=== PATIENT | female | born 1995 | race Caucasian/White ===

== ENCOUNTER → 2019-09-06 | Outpatient (CLI) | payer SELFPAY ==
--- NOTE | 2019-09-06 15:20 | RADIOLOGY REPORT (SQ) ---
EXAM DESCRIPTION: U/S [id number] TRNABD 1GES W/ODOP COMPLETED DATE/TIME: 09/06/2019 3:08 pm REASON FOR STUDY: ENCTR FOR SUPERVISION OF OTHER NORMAL , 1ST TRIMESTER (Z34.81) Z34.81 EN COUNTER FOR SUPRVSN OF NORMAL , FIRST TRIM COMPARISON: None. TECHNIQUE: Transabdominal static and realtime grayscale images acquired of the pelvis. Additional se lected spectral and color Doppler images recorded. All images stored on PACs. bHCG: Not applicable. CLINICAL DATES: 14 weeks 1 day LIMITATIONS: None. FINDINGS: FETUS: Single Living intrauterine . ULTRASOUND EGA: 13 week 0 days. ULTRASOUND MAURY: 03/13/2020 EFW: Not applicable less than 20 weeks. CRL: Visualized. FHR: 162 beats per minute. SURVEY: Too early to assess. AMNIOTIC FLUID: Adequate amount. PLACENTA: Not yet developed due to early gestation. SUBCHORIONIC BLEED: No. SIZE OF BLEED: Not applicable. UTERUS: No masses. No anomalies. CERVICAL LENGTH: 3.6 cm. Closed. RIGHT ADNEXA: Normal ovary with normal vascular flow. No adnexal free fluid. No adnexal masses. LEFT ADNEXA: Normal ovary with normal vascular flow. No adnexal free fluid. No adnexal masses. FREE FLUID: None. OTHER: No other significant finding. IMPRESSION: LIVING INTRAUTERINE . EGA 13 WEEK 0 DAYS. Trimester of : First trimester - 0 to 13 weeks. TECHNICAL DOCUMENTATION: JOB ID: [id number] 2010 [employer]- All Rights Reserved rev-11/12 Reading location - IP/workstation name: [email or web address]
== END ==
LOC: RAD 13:47
PROVIDERS: ATTEND Midwife
DX: Z34.81 Encounter for supervision of other normal pregnancy, first trimester (principal)
CPT/HCPCS: 76801

== ENCOUNTER → 2019-10-31 | Outpatient (CLI) | payer SELFPAY ==
--- NOTE | 2019-10-31 14:45 | RADIOLOGY REPORT (SQ) ---
EXAM DESCRIPTION: U/S OB 14+ TRNABD 1GES W/O DOP IMAGES COMPLETED DATE/TIME: 10/31/2019 2:05 pm REASON FOR STUDY: (Z34.82)ENCOUNTER FOR SUPRVSN OF NORMAL , SECOND TRIMESTER Z34.[address] FOR SUPRVSN OF NORMAL , SECOND TRI COMPARISON: 09/06/2019. TECHNIQUE: Static and Dynamic grayscale imaging performed of gravid uterus using transabdominal appr oach. Additional selected color Doppler and spectral images recorded. All stored on PACS. LIMITATIONS: None. FINDINGS: FETUSES SEEN:1 EGA: 20 week 5 day. Calculated using BPD,FL,HC,AC documented on images. No discrepancy with clinical dates. MAURY: 03/14/2020. EFW: 368 grams LVP: 5.6 cm. PLACENTA: Anterior. Low lying. PRESENTATION: Variable. ANATOMY: HEART RATE: 140 beats per minute. FOUR CHAMBER HEART: Visualized. THREE VESSEL CORD: Yes. CORD INSERTION: Visualized. KIDNEYS AND BLADDER: Visualized. Appear normal. STOMACH: Visualized. Appears normal. SPINE: Suboptimal visualization. BRAIN AND LATERAL VENTRICLES: Visualized. Appear normal. OTHER: No other significant finding. MATERNAL ADNEXA: Maternal ovaries not visualized. CERVICAL LENGTH: 3.3 cm. Closed. OTHER: No other significant finding. IMPRESSION: LIVING INTRAUTERINE . ESTIMATED GESTATIONAL AGE 20 WEEK 5 DAY. LOW LYING PLACENTA. WILL NEED FOLLOW-UP ULTRASOUND. NO VISUALIZED ANOMALIES. Trimester of : Second trimester - 13 weeks 1 day to 27 weeks 6 days. TECHNICAL DOCUMENTATION: JOB ID: [id number] 2010 [employer]- All Rights Reserved Reading location - IP/workstation name: [email or web address]
== END ==
LOC: RAD 13:17
PROVIDERS: ATTEND Midwife
DX: Z34.82 Encounter for supervision of other normal pregnancy, second trimester (principal); Z3A.20 20 weeks gestation of pregnancy
CPT/HCPCS: 76805

== ENCOUNTER → 2019-12-21 | Outpatient (CLI) | payer SELFPAY ==
--- NOTE | 2019-12-21 14:44 | RADIOLOGY REPORT (SQ) ---
EXAM DESCRIPTION: U/S OB 14+ TA/1 GEST W/DOPPLER IMAGES COMPLETED DATE/TIME: 12/21/2019 2:22 pm REASON FOR STUDY: ENCTR FOR SUPERVISION OF OTHER NORMAL , 2ND TRIMESTER (Z34.82) Z34.82 EN COUNTER FOR SUPRVSN OF NORMAL , SECOND TRI COMPARISON: None. TECHNIQUE: Limited transabdominal grayscale ultrasound for evaluation of specific requested obstetri darrion parameters. LIMITATIONS: None. FINDINGS: CERVICAL LENGTH: 4 cm. Closed CHENCHO: 16.6 cm cm. FHR: 149 beats per minute. PRESENTATION: Transverse PLACENTA: Anterior. Slightly low lying but almost 2 cm away from the internal cervical os. Apparent placental lakes. The largest is 17 mm. ANATOMY: Not assessed OTHER: Estimated body weight 1237 +/- 183 g, 52nd percentile. Ultrasound gestational age 28 we eks 3 days with an estimated date of delivery of 03/11/2020. IMPRESSION: LIMITED OBSTETRICAL ULTRASOUND WITH MEASURED PARAMETERS DELINEATED ABOVE. Trimester of : Third trimester - 28 weeks to delivery. TECHNICAL DOCUMENTATION: JOB ID: [id number] [employer]- All Rights Reserved Reading location - IP/workstation name: [email or web address]
== END ==
LOC: RAD 13:33
PROVIDERS: ATTEND Midwife
DX: O44.43 Low lying placenta NOS or without hemorrhage, third trimester (principal); Z3A.28 28 weeks gestation of pregnancy
CPT/HCPCS: 76805; 93976

== ENCOUNTER → 2020-01-19 | Outpatient (CLI) | payer SELFPAY ==
--- NOTE | 2020-01-19 14:10 | RADIOLOGY REPORT (SQ) ---
EXAM DESCRIPTION: U/S OB 14+ TRNABD 1GES W/O DOP IMAGES COMPLETED DATE/TIME: 01/19/2020 1:55 pm REASON FOR STUDY: Z34.83 ENCOUNTER FOR SUPRVSN OF NORMAL , THIRD TRIMESTER Z34.83 ENCOUNTE R FOR SUPRVSN OF NORMAL , THIRD TRIM COMPARISON: 12/21/2019 and 10/31/2019. TECHNIQUE: Static and Dynamic grayscale imaging performed of gravid uterus using transabdominal appr oach. Additional selected color Doppler and spectral images recorded. All stored on PACS. LIMITATIONS: None. FINDINGS: FETUSES SEEN:1 EGA: 32 week 0 day. Calculated using BPD,FL,HC,AC documented on images. No discrepancy with clinical dates. MAURY: 03/15/2020. EFW: 1,824 grams PERCENTILE: 38%. CHENCHO: 27.5 cm. LVP 5.6 x 8.8 cm. PLACENTA: Anterior. The lower edge is located 3.3 cm from the internal cervical os. Incidental plac ental lakes. PRESENTATION: Transverse. ANATOMY: HEART RATE: 157 beats per minute. A full detailed anatomy scan was not performed. MATERNAL ADNEXA: Maternal ovaries not visualized. CERVICAL LENGTH: 4.0 cm. Closed. OTHER: No other significant finding. IMPRESSION: LIVING INTRAUTERINE . ESTIMATED GESTATIONAL AGE 32 WEEK 0 DAY. NO PLACENTA PREVIA. A FULL DETAILED ANATOMY SCAN WAS NOT PERFORMED. Trimester of : Third trimester - 28 weeks to delivery. TECHNICAL DOCUMENTATION: JOB ID: [id number] 2010 [employer]- All Rights Reserved Reading location - IP/workstation name: [email or web address]
== END ==
LOC: RAD 13:22
PROVIDERS: ATTEND Midwife
DX: Z34.83 Encounter for supervision of other normal pregnancy, third trimester (principal); Z3A.32 32 weeks gestation of pregnancy
CPT/HCPCS: 76805

== ENCOUNTER → 2020-02-19 | Outpatient (CLI) | payer SELFPAY ==
--- NOTE | 2020-02-19 14:50 | RADIOLOGY REPORT (SQ) ---
EXAM DESCRIPTION: U/S OB 14+ TRNABD 1GES W/O DOP IMAGES COMPLETED DATE/TIME: 02/19/2020 2:36 pm REASON FOR STUDY: Z34.83 ENCOUNTER FOR SUPRVSN OF NORMAL , THIRD TRIMESTER Z34.83 ENCOUNTE R FOR SUPRVSN OF NORMAL , THIRD TRIM COMPARISON: 01/19/2020 TECHNIQUE: Static and Dynamic grayscale imaging performed of gravid uterus using transabdominal appr oach. Additional selected color Doppler and spectral images recorded. All stored on PACS. LIMITATIONS: None. FINDINGS: FETUSES SEEN:1 EGA: 36 weeks 1 days Calculated using BPD,FL,HC,AC documented on images. MAURY: 03/15/2020 CHENCHO: 12.9 PLACENTA: Anterior. Placental lakes noted PRESENTATION: Breech. ANATOMY: HEART RATE: 143 beats per minute. A FULL DETAILED ANATOMY SCAN WAS NOT PERFORMED. OTHER: No other significant finding. MATERNAL ADNEXA: Maternal ovaries not visualized. CERVICAL LENGTH: 4.4 Closed. OTHER: No other significant finding. IMPRESSION: LIVING INTRAUTERINE . ESTIMATED GESTATIONAL AGE 36 weeks 1 day A FULL DETAILED ANATOMY SCAN WAS NOT PERFORMED. Trimester of : Third trimester - 28 weeks to delivery. TECHNICAL DOCUMENTATION: JOB ID: [id number] 2010 [employer]- All Rights Reserved Reading location - IP/workstation name: [email or web address]
== END ==
LOC: RAD 13:42
PROVIDERS: ATTEND Midwife
DX: Z34.83 Encounter for supervision of other normal pregnancy, third trimester (principal)
CPT/HCPCS: 76805

== ENCOUNTER → 2020-03-13 | Outpatient (CLI) | payer SELFPAY ==
--- NOTE | 2020-03-13 15:38 | RADIOLOGY REPORT (SQ) ---
EXAM DESCRIPTION: U/S OB LIMITED IMAGES COMPLETED DATE/TIME: 03/13/2020 3:30 pm REASON FOR STUDY: iup 40+2 CHENCHO COMPARISON: 02/19/2020 TECHNIQUE: Limited transabdominal grayscale ultrasound for evaluation of specific requested obstetri darrion parameters. LIMITATIONS: None. FINDINGS: CERVICAL LENGTH: 2.7 cm. Closed. CHENCHO: 23.3 cm. FHR: 162 beats per minute. PRESENTATION: Cephalic. PLACENTA: Multiple placental lakes. The placenta is anterior location. ANATOMY: Not assessed OTHER: Estimated gestational age is 39 weeks 5 days. IMPRESSION: LIMITED OBSTETRICAL ULTRASOUND WITH MEASURED PARAMETERS DELINEATED ABOVE. Trimester of : Third trimester - 28 weeks to delivery. TECHNICAL DOCUMENTATION: JOB ID: [id number] 2010 [employer]- All Rights Reserved Reading location - IP/workstation name: [email or web address]
--- NOTE | 2020-03-13 21:00 | Non Stress Test Report ---
Non Stress Test Datetime Report Generated by CPN: 03/13/2020 21:00 DEMOGRAPHIC EGA NST: 40.0 MONITORING Monitor Explained: Monitor Explained; Test Explained; Patient Verbalized Understanding Time on Monitor: 03/13/2020 14:41 Time off Monitor: 03/13/2020 15:06 NST Duration: 25 NST INTERVENTIONS NST Interventions: PO Hydration Physician Notified NST: Dr Cee BABY A: [id number] BABY A Movement : Present Contraction Frequency : x1 FHR Baseline : 140 Accelerations : 15X15 Decelerations : None Variability : Moderate 6-25bpm NST Review: Meets Criteria for Reactive NST NST Review and Verified By : Ashly, RN NST Results: Reactive NST REPORT Report Trigger: Send Report
== END ==
LOC: LC 14:22
PROVIDERS: ATTEND Obstetrics & Gynecology
DX: O48.0 Post-term pregnancy (principal); Z3A.40 40 weeks gestation of pregnancy; Z91.040 Latex allergy status
CPT/HCPCS: 59025; 76815

== ENCOUNTER 2020-03-17 16:45 | Inpatient (IN) | payer SELFPAY ==
[~2020-03-17 16:45] MED LIST: NORMAL SALINE IV ONE; TRANEXAMIC ACID INJ/PF 1,000 MG/10 ML SDV ONE
[2020-03-17] MEDS ORDERED: DINOPROSTONE 10 MG VAGINAL INSERT.SR PV PRN (16:52)
[2020-03-17] MEDS ORDERED: MAG HYDROX/AL HYDROX/SIMETH SUSP 30 ML UDCUP PO PRN (16:54)
[2020-03-17] MEDS ORDERED: ZOLPIDEM TARTRATE 5 MG TABLET PO PRN (16:54)
[2020-03-17] MEDS ORDERED: OXYTOCIN/0.9 % SODIUM CHLORIDE 30 UNIT/500 ML RTUINJ IV PRN (16:54)
[2020-03-17] MEDS ORDERED: DINOPROSTONE 10 MG VAGINAL INSERT.SR PV ONE (16:54)
[2020-03-17] MEDS ORDERED: ACETAMINOPHEN 325 MG TABLET PO PRN (16:54)
[2020-03-17] MEDS: RINGERS SOLUTION,LACTATED 1,000 ML IV PRN (17:16)
[2020-03-17] MEDS ORDERED: RINGERS SOLUTION,LACTATED 300 ML IV ONE (17:30)
[2020-03-17 17:31] LABS: ABSOLUTE EOSINOPHILS # (AUTO) 0.1 10^3/uL (0.0-0.6); ABSOLUTE LYMPHOCYTES (AUTO) 1.9 10^3/uL (0.5-4.7); ABSOLUTE MONOCYTES (AUTO) 0.6 10^3/uL (0.1-1.4); ABSOLUTE NEUT (AUTO) 5.6 10^3/uL (1.7-8.2); BASOPHILS % (AUTO) 0.3 % (0-2); EOSINOPHILS % (AUTO) 1.2 % (0-6); HEMATOCRIT 36.7 % (36.0-47.0); HEMOGLOBIN 12.5 g/dL (12.0-15.5); LYMPHOCYTES % (AUTO) 23.2 % (13-45); MEAN CORPUSCULAR HEMOGLOBIN 28.6 pg (27.0-33.4); MEAN CORPUSCULAR VOLUME 84 fl (80-97); MONOCYTES % (AUTO) 7.2 % (3-13); PLATELET COUNT 153 10^3/uL (150-450); RED BLOOD COUNT 4.37 10^6/uL (3.72-5.28); RED CELL DISTRIBUTION WIDTH 14.8 % (11.5-14.0); SEGMENTED NEUTROPHILS % (AUTO) 68.1 % (42-78); TOTAL CELLS COUNTED % (AUTO) 100 %; WHITE BLOOD COUNT 8.3 10^3/uL (4.0-10.5)
[2020-03-17] MEDS ORDERED: MISOPROSTOL 0.2 MG TABLET ONE (18:38)
[2020-03-17] MEDS ORDERED: OXYTOCIN 10 UNIT/ML VIAL ONE (18:38)
[2020-03-17] MEDS ORDERED: LIDOCAINE 1% INJ-PF (10 MG/ML) 30 ML SDV ONE (18:39)
[2020-03-17] MEDS ORDERED: OXYTOCIN/0.9 % SODIUM CHLORIDE 30 UNIT/500 ML RTUINJ ONE (18:39)
[2020-03-17] MEDS ORDERED: DINOPROSTONE 10 MG VAGINAL INSERT.SR ONE (19:05)
[2020-03-17 19:24] LABS: APPEARANCE,URINE CLOUDY; BILIRUBIN,URINE NEGATIVE (NEGATIVE); COLOR,URINE YELLOW; GLUCOSE, URINE NEGATIVE (NEGATIVE); KETONES,URINE NEGATIVE (NEGATIVE); LEUKOCYTE ESTERASE,URINE MODERATE (NEGATIVE); NITRITE,URINE NEGATIVE (NEGATIVE); PROTEIN,URINE 30 mg/dL (NEGATIVE); UROBILINOGEN,URINE NEGATIVE mg/dL (<2.0)
[2020-03-17 19:40] LABS: URINE AMPHETAMINES SCREEN NEGATIVE; URINE BARBITURATES SCREEN NEGATIVE; URINE BENZODIAZEPINES SCREEN NEGATIVE; URINE COCAINE SCREEN NEGATIVE; URINE MARIJUANA (THC) SCREEN NEGATIVE; URINE METHADONE SCREEN NEGATIVE; URINE PHENCYCLIDINE SCREEN NEGATIVE
--- NOTE | 2020-03-17 21:19 | Admission Physical ---
Datetime Report Generated by CPN: 03/17/2020 21:19 CURRENT ADMISSION Chief Complaint: Scheduled Induction of Labor Chief Complaint Other: Scheduled IOL. Good FM, no LOF or VB. Irregular ctx Indication for Induction: Post Dates Admit Impression : Postterm, Intrauterine Admit Plan: Admit to Unit; Initiate Labor Induction Protocol ALLERGIES Medication Allergies: No Medication Allergies: No Known Allergies (03/17/2020) Latex: Latex Allergies Food Allergies: None Environmental Allergies: None OBSTETRICAL HISTORY EDC: 03/13/2020 00:00 : 2 Para: 1 Term: 1 : 0 SAB: 0 IAB: 0 Ectopic: 0 Livin Cesareans: 0 VBACs: 0 Multiple Births: 0 Gestational Diabetes: No Rh Sensitization: No Incompetent Cervix: No ALESSIO: No Infertility: No ART Treatment: No Uterine Anomaly: No IUGR: No Hx Previous C/S: No Macrosomia: Yes Hx Loss/Stillborn: No PIH: No Hx : No Placenta Previa/Abruption: No Depression/PP Depression: No PTL/PROM: No Post Hemorrhage: No Current Procedures: Ultrasound; NST Obstetrical History Comments: G-1 3yo female 06/08/2016 G2- current, 8 lbs one month ago SEE RECORDS Alcohol: No Marijuana : No Cocaine: No Other Illicit Drugs: No Cigarettes: Never Smoker. [id number] Advised to Stop: No MEDICAL HISTORY Diabetes: No Blood Transfusion: No Pulmonary Disease (Asthma, TB): No Breast Disease: No Hypertension: No Test Desk Trouble Locator Surgery: No Heart Disease: No Hosp/Surgery: Yes Autoimmune Disorder: No Anesthetic Complications: No Kidney Disease: No Abnormal Pap Smear: No Neuro/Epilepsy: No Psychiatric Disorders: No Other Medical Diseases: No Hepatitis/Liver Disease: No Significant Family History: No Varicosities/Phlebitis: No Trauma/Violence : No Thyroid Dysfunction: No Medical History Comments: Hospitalization for child INFECTIOUS HISTORY Gonorrhea: No Genital Herpes: No Chlamydia: No Tuberculosis: No Syphilis: No Hepatitis: No HIV/AIDS Exposure: No Rash or Viral Illness: No HPV: No PHYSICAL EXAM General: Normal HEENT: Normal Neurologic: Normal Thyroid: Normal Heart: Normal Lungs: Normal Breast: Normal Back: Normal Abdomen: Normal Genitourinary Exam: Normal Extremities: Normal DTRs: Normal Pelvic Type: Adequate Vital Signs: Reviewed; Within Normal Limits VAGINAL EXAM Dilatation: 1 Effacement: 0 Station: -3 Contraction Comments: irregular FETUS A EGA: 40.4 Monitoring: External US FHR- Baseline: 155 Variability: Moderate 6-25bpm Accelerations: 15X15 Decelerations: None FHR Category: Category I Presentation: Vertex Admit Comment: at 40.4 wks EGA for IOL d/t postdates -Admit to LDR -CEFM and toco -NPO and IVFs: LR at 125 cc/hr -GBS negative -Cervidil 10mg PV now -Hx of one prior -Anticipate PLANS FOR LABOR AND DELIVERY Labor and Delivery: None Pain Management: Natural Feeding Preference: Breast Benefit of Breast Feed Discussed: Yes Circumcision: No INFORMED CONSENT Informed Consent Obtained: Vaginal Delivery; Induction of Labor; Risks, Benefits and Alternatives Discussed Signature: with User ID: Christina : with User ID: Christina
[2020-03-18] MEDS ORDERED: ACETAMINOPHEN 325 MG TABLET ONE (04:51)
[2020-03-18] MEDS ORDERED: PROMETHAZINE HCL INJ 25 MG/1 ML VIAL ONE ×2 (06:01→18:00)
[2020-03-18] MEDS ORDERED: GENTAMICIN SULFATE INJ 80 MG/2 ML VIAL ONE (06:01)
[2020-03-18] MEDS ORDERED: NALBUPHINE HCL INJ 10 MG/1 ML AMPULE ONE (06:01)
[2020-03-18] MEDS ORDERED: AMPICILLIN SOD INJ 2 GM VIAL ONE (06:01)
[2020-03-18] MEDS ORDERED: GENTAMICIN SULFATE INJ 80 MG/2 ML VIAL IV SCH (06:15)
[2020-03-18] MEDS ORDERED: AMPICILLIN SOD INJ 500 MG VIAL IV SCH (06:15)
[2020-03-18] MEDS: GENTAMICIN SULFATE 120 MG in DEXTROSE 5%-WATER 100 ML IV SCH ×3 (06:21→22:20)
[2020-03-18] MEDS ORDERED: ACETAMINOPHEN 1,000 MG/100 ML RTUPB IV ONE ×2 (08:20→15:28)
[2020-03-18] MEDS ORDERED: ACETAMINOPHEN 1,000 MG/100 ML RTUPB IV PRN ×2 (08:23→16:42)
[2020-03-18] MEDS: RINGERS SOLUTION,LACTATED 1,000 ML IV PRN ×2 (08:50→14:27)
[2020-03-18] MEDS: AMPICILLIN SODIUM 500 MG in NORMAL SALINE 25 ML IV SCH ×2 (09:48→12:36)
--- NOTE | 2020-03-18 12:01 | L&D Progress Notes ---
PROGRESS NOTES Datetime Report Generated by CPN: 03/18/2020 12:00 PROGRESS NOTE Impression: Non-reassuring Heart Rate Procedures: Scalp Electrode Plan: Continue Present Management Informed Consent Obtained: Vaginal Delivery; Induction of Labor; Risks, Benefits and Alternatives Discussed Comment: Desire used for interpretation, georgian. Discussed need for cervix check and FSE placement with patient. She declined pain management. VAGINAL EXAM Dilatation: 1 Effacement: 0 Station: -3 Contractions: irregular LAST VAGINAL EXAM-NURSING Nursing Exam Dilitation: 7.0 Nursing Exam Effacement: 50 Nursing Exam Station: -3 MEMBRANES Amniotic Fluid Color: Clear FETUS A FHR - Baseline: 150 Variability: Moderate 6-25bpm Decelerations: Variable FHR Category: Category II FHR Comments: variable decels, 1 down to 60s : 40.5 Presentation: Vertex SIGNATURE SIGNATURE: [id number];[id number];[id number] Assignment: Ibrahima oCmbs MD Signature: with User ID: [email or web address] : with User ID: Helga
[2020-03-18] MEDS ORDERED: CITRIC ACID/SODIUM CITRATE ORAL SOLN 15 ML UDCUP ONE (15:24)
[2020-03-18] MEDS ORDERED: OXYTOCIN 10 UNIT/ML VIAL ONE (15:26)
[2020-03-18] MEDS ORDERED: KETOROLAC TROMETHAMINE INJ/PF 30 MG/1 ML SDV ONE (15:27)
[2020-03-18] MEDS ORDERED: PHENYLEPHRINE HCL INJ/PF 10 MG/1 ML SDV ONE (15:27)
[2020-03-18] MEDS ORDERED: FENTANYL CITRATE INJ/PF 100 MCG/2 ML AMPUL ONE (15:27)
[2020-03-18] MEDS ORDERED: MIDAZOLAM 2 MG/2 ML INJ ONE (15:27)
[2020-03-18] MEDS ORDERED: ONDANSETRON HCL INJ/PF 4 MG/2 ML SDV ONE (15:28)
[2020-03-18] MEDS ORDERED: EPHEDRINE SULFATE INJ 50 MG/1 ML AMPULE ONE (15:28)
[2020-03-18] MEDS ORDERED: OXYTOCIN/0.9 % SODIUM CHLORIDE 0 UNIT/0 ML RTUINJ ONE (15:28)
[2020-03-18] MEDS ORDERED: ACETAMINOPHEN 325 MG TABLET PO PRN (16:41)
[2020-03-18] MEDS ORDERED: SIMETHICONE 80 MG TAB.CHEW PO PRN (16:41)
[2020-03-18] MEDS ORDERED: MEASLES,MUMPS&RUBELLA VACC/PF 0.5 ML VIAL SUBCUT PRN (16:41)
[2020-03-18] MEDS ORDERED: RINGERS SOLUTION,LACTATED 1,000 ML IV PRN (16:41)
[2020-03-18] MEDS ORDERED: DIPH/PERTUSS(ACELL)/TETANUS VAC/PF 0.5 ML SYR (>=10YO) IM PRN (16:41)
[2020-03-18] MEDS ORDERED: OXYTOCIN/0.9 % SODIUM CHLORIDE 30 UNIT/500 ML RTUINJ IV PRN (16:41)
[2020-03-18] MEDS ORDERED: PROMETHAZINE HCL INJ 25 MG/1 ML VIAL IV PRN (16:41)
[2020-03-18] MEDS ORDERED: MORPHINE SULFATE 10 MG/ML INJ IM PRN (16:42)
--- NOTE | 2020-03-18 16:45 | Operative Report ---
Operative Report DATE OF SURGERY: 03/18/20 PREOPERATIVE DIAGNOSIS: IUP at term spontaneous rupture membranes and f ailure to descend POSTOPERATIVE DIAGNOSIS: Same OPERATION: Primary low transverse section liver viable SURGEON: EFRAIN TRINIDAD ANESTHESIA: Spinal TISSUE REMOVED OR ALTERED: Placenta ESTIMATED BLOOD LOSS: Approximately 1200 cc PROCEDURE: The patient was taken to the operating room where spinal anesthesia was obtained and found to be adequate. She was then prepped and draped in the normal sterile fashion and placed in the dorsal supine position with a leftward tilt. A Pfannenstiel skin incision was then made and carried through to the underlying layers of the fascia with the scalpel. The fascia was incised in the midline and the incision extended laterally with the Orellana scissors. The superior aspect of the fascial incision was then grasped with Gian clamps elevated and the underlying rectus muscles dissected off bluntly. Attention was then turned to the inferior aspect of the fascial incision which in a similar fashion was grasped, tented up with Gordy clamps, and the rectus muscles disse cted off bluntly. The rectus muscles were then in the midline and the peritoneum at the amount identified and entered bluntly. The peritoneal incision was then extended superiorly and inferiorly with good visualization of the bladder. [The bladder blade was inserted and the vesicouterine peritoneum identified grasped with Colombian pickups and entered sharply with the Metzenbaum scissors. His incision was then extended laterally with the Metzenbaum scissors and a bladder flap created digitally. The bladder blade was then reinserted and the lower uterine segment incised in a transverse fashion with the scalpel. The uterine incision was then extended bluntly. The bladder blade was removed and the 's head was delivered from cephalic presentation atraumatically. The nose and mouth were suctioned and the cord doubly clamped and cut. And the was handed off to waiting pediatricians. The placenta was then delivered manully and the uterus exteriorized and cleared of all clots and debris. The uterine incision was then repaired with 1-0 Vicryl in a running locked fashion. A second layer of the same suture was used to obtain hemostasis via imbrication of the initial layer. The uterus was returned to the patient's abdomen. The gutters were cleared of all clots and debris. All operative sites were noted to be hemostatic. The fascia was reapproximated with 0 Vicryl in a running fashion from each lateral edge to the midline. The patient tolerated the procedure well. Sponge lap needle and instrument counts are correct -2. 2 g of Ancef were given prior to skin incision. The patient was taken to the recovery area awake and in stable condition.
[2020-03-18] MEDS ORDERED: METHYLERGONOVINE MALEATE INJ/PF 0.2 MG/1 ML AMPULE ONE (17:14)
[2020-03-18] MEDS ORDERED: MISOPROSTOL 0.2 MG TABLET ONE (17:14)
[2020-03-18] MEDS ORDERED: NORMAL SALINE 250 ML IV PRN ×2 (17:36)
[2020-03-18] MEDS ORDERED: CARBOPROST TROMETHAMINE INJ 250 MCG/1 ML AMPULE ONE (17:49)
[2020-03-18] MEDS ORDERED: LOPERAMIDE HCL 2 MG CAPSULE ONE (17:49)
[2020-03-18] MEDS ORDERED: IBUPROFEN 800 MG TABLET PO SCH (18:00)
[2020-03-18 18:10] LABS: HEMATOCRIT 33.3 % (36.0-47.0); MEAN CORPUSCULAR HEMOGLOBIN 28.4 pg (27.0-33.4); MEAN CORPUSCULAR VOLUME 86 fl (80-97); PLATELET COUNT 162 10^3/uL (150-450); RED BLOOD COUNT 3.87 10^6/uL (3.72-5.28); RED CELL DISTRIBUTION WIDTH 14.6 % (11.5-14.0); WHITE BLOOD COUNT 12.6 10^3/uL (4.0-10.5)
[2020-03-18 20:51] LABS: ABSOLUTE LYMPHOCYTES (AUTO) 1.1 10^3/uL (0.5-4.7); ABSOLUTE MONOCYTES (AUTO) 0.7 10^3/uL (0.1-1.4); ABSOLUTE NEUT (AUTO) 8.3 10^3/uL (1.7-8.2); BASOPHILS % (AUTO) 0.3 % (0-2); EOSINOPHILS % (AUTO) 0.1 % (0-6); HEMATOCRIT 27.9 % (36.0-47.0); LYMPHOCYTES % (AUTO) 11.3 % (13-45); MEAN CORPUSCULAR HEMOGLOBIN 28.8 pg (27.0-33.4); MEAN CORPUSCULAR HGB CONC 34.2 g/dL (32.0-36.0); MEAN CORPUSCULAR VOLUME 84 fl (80-97); PLATELET COUNT 150 10^3/uL (150-450); RED BLOOD COUNT 3.32 10^6/uL (3.72-5.28); RED CELL DISTRIBUTION WIDTH 15.1 % (11.5-14.0); SEGMENTED NEUTROPHILS % (AUTO) 81.3 % (42-78); TOTAL CELLS COUNTED % (AUTO) 100 %; WHITE BLOOD COUNT 10.2 10^3/uL (4.0-10.5)
[2020-03-18 20:52] LABS: HEMOGLOBIN 9.6 g/dL (12.0-15.5)
[2020-03-18] MEDS ORDERED: KETOROLAC TROMETHAMINE INJ/PF 30 MG/1 ML SDV IV SCH (22:00)
[2020-03-19] MEDS: KETOROLAC TROMETHAMINE INJ/PF 30 MG/1 ML SDV IV SCH ×2 (00:58→08:09)
[2020-03-19] MEDS: AMPICILLIN SODIUM 500 MG in NORMAL SALINE 25 ML IV SCH ×5 (00:58→17:26)
[2020-03-19] MEDS: DOCUSATE SODIUM 100 MG CAPSULE PO SCH ×3 (02:23→17:26)
[2020-03-19] MEDS: OXYCODONE-ACETAMINOPHEN 5-325 MG TABLET PO PRN ×3 (03:58→16:00)
[2020-03-19] MEDS: GENTAMICIN SULFATE 120 MG in DEXTROSE 5%-WATER 100 ML IV SCH ×2 (06:08→13:14)
[2020-03-19 07:47] LABS: HEMATOCRIT 24.2 % (36.0-47.0); HEMOGLOBIN 8.2 g/dL (12.0-15.5); MEAN CORPUSCULAR HGB CONC 33.9 g/dL (32.0-36.0); MEAN CORPUSCULAR VOLUME 86 fl (80-97); PLATELET COUNT 161 10^3/uL (150-450); RED BLOOD COUNT 2.83 10^6/uL (3.72-5.28); RED CELL DISTRIBUTION WIDTH 14.9 % (11.5-14.0); WHITE BLOOD COUNT 10.5 10^3/uL (4.0-10.5)
[2020-03-19] MEDS: PRENATAL VITAMIN W DHA CAPSULE PO SCH (09:10)
--- NOTE | 2020-03-19 12:10 | PDOC PROGRESS REPORT ---
Subjective-OB Progress Note for:: 03/19/20 Subjective: reports bleeding slowing, pain controlled with current meds. denies needs. martii used for translation Physical Exam (OB) Vital Signs: Temp Pulse Resp BP Pulse Ox 98.0 F 89 16 110/57 L 98 03/19/20 11:32 03/19/20 11:32 03/19/20 11:32 03/19/20 11:32 03/19/20 11:32 Intake & Output 03/18/20 03/19/20 03/20/20 06:59 06:59 06:59 Intake Total 3152 1425 Output Total 100 700 Balance 3052 725 Weight 80.8 kg - Dressing Removed: Yes Incision: Open - Maternal Morbidity 59. Maternal Morbidity (serious complications experinced by the mother associated with labor and delivery: None of the above - Abdomen Description: Tender, Soft Hernia Present: No Fundal Description: Firm, Midline Fundal Height: u/u - u/2 - Abdominal Distension: No distension - Extremities Lower extremities: Brenda's sign - neg Calf: Normal, Nontender Objective-Diagnostic Laboratory: 03/19/20 07:00 03/17/20 03/18/20 03/18/20 17:10 17:55 20:29 WBC 12.6 H 10.2 RBC 3.87 3.32 L Hgb 11.0 L 9.6 L Hct 33.3 L 27.9 L MCV 86 84 MCH 28.4 28.8 MCHC 33.0 34.2 RDW 14.6 H 15.1 H Plt Count 162 150 Seg Neutrophils % 81.3 H Blood Type O POSITIVE Antibody Screen NEGATIVE 03/19/20 07:00 WBC 10.5 RBC 2.83 L Hgb 8.2 L Hct 24.2 L MCV 86 MCH 29.0 MCHC 33.9 RDW 14.9 H Plt Count 161 Seg Neutrophils % Blood Type Antibody Screen Assessment and Plan(PN) - Assessment and Plan (1) Status post primary low transverse section Is this a current diagnosis for this admission?: Yes (2) Encounter for induction of labor Is this a current diagnosis for this admission?: Yes - Time Spent with Patient Time with patient: Less than 15 minutes - Disposition Anticipated Discharge Disposition: Home, Self Care Anticipated Discharge Timeframe: within 48 hours
[2020-03-19] MEDS: IBUPROFEN 800 MG TABLET PO SCH ×2 (15:57→20:28)
[2020-03-20] MEDS: IBUPROFEN 800 MG TABLET PO SCH ×3 (03:16→16:33)
[2020-03-20] MEDS: OXYCODONE-ACETAMINOPHEN 5-325 MG TABLET PO PRN (07:43)
[2020-03-20] MEDS: DOCUSATE SODIUM 100 MG CAPSULE PO SCH (10:43)
[2020-03-20] MEDS: PRENATAL VITAMIN W DHA CAPSULE PO SCH (10:43)
[2020-03-20] MEDS ORDERED: IRON SUCROSE COMPLEX INJ/PF 100 MG/5 ML SDV IV ONE ×2 (12:55→17:30)
--- NOTE | 2020-03-20 13:06 | PDOC DISCHARGE SUMMARY ---
Impression - Admit/DC Date/PCP Admission Date/Primary Care Provider: 03/17/20 16:45 NOLAN LEA CNM Discharge Date: 03/20/20 - Discharge Diagnosis (1) Status post primary low transverse section Is this a current diagnosis for this admission?: Yes (2) Encounter for induction of labor Is this a current diagnosis for this admission?: Yes (3) Acute blood loss anemia Is this a current diagnosis for this admission?: Yes - Assessment Summary: 24yo s/p primary ppd2-stable and ready for discharge, understands warning s/s and reasons to rtc/[facility]. Has scheduled f/u visit for incision check. - Additional Information Resuscitation Status: Full Code Discharge Diet: As Tolerated, Regular Discharge Activity: Activity As Tolerated, Balance Activity w/Rest, No Driving, No Lifting Over 10 Pounds, Pelvic Rest, No tub bath Referrals: NOLAN LEA CNM [Primary Care Provider] - Prescriptions: Oxycodone HCl/Acetaminophen [Percocet 5-325 mg Tablet] 1 tab PO Q4HP PRN #20 tablet PRN Reason: For Pain Scale 3-5 Ibuprofen [Motrin 800 mg Tablet] 800 mg PO Q8HP PRN #30 tablet PRN Reason: For Pain Scale 1-3 Docusate Sodium [Colace 100 mg Capsule] 100 mg PO BID #60 capsule Ferrous Sulfate [Feosol 325 mg Tablet] 325 mg PO DAILY #30 tab Home Medications: Vit/Dha [ Multi + Dha Capsule] 1 cap PO DAILY 03/13/20 Docusate Sodium [Colace 100 mg Capsule] 100 mg PO BID #60 capsule 03/20/20 Ferrous Sulfate [Feosol 325 mg Tablet] 325 mg PO DAILY #30 tab 03/20/20 Ibuprofen [Motrin 800 mg Tablet] 800 mg PO Q8HP PRN #30 tablet 03/20/20 Oxycodone HCl/Acetaminophen [Percocet 5-325 mg Tablet] 1 tab PO Q4HP PRN #20 tablet 03/20/20 Hospital Course 59. Maternal Morbidity (serious complications experinced by the mother associated with labor and delivery: None of the above Results Laboratory Results: WBC 10.5 10^3/uL (4.0-10.5) 03/19/20 07:00 RBC 2.83 10^6/uL (3.72-5.28) L 03/19/20 07:00 Hgb 8.2 g/dL (12.0-15.5) L 03/19/20 07:00 Hct 24.2 % (36.0-47.0) L 03/19/20 07:00 MCV 86 fl (80-97) 03/19/20 07:00 MCH 29.0 pg (27.0-33.4) 03/19/20 07:00 MCHC 33.9 g/dL (32.0-36.0) 03/19/20 07:00 RDW 14.9 % (11.5-14.0) H 03/19/20 07:00 Plt Count 161 10^3/uL (150-450) 03/19/20 07:00 Lymph % (Auto) 11.3 % (13-45) L 03/18/20 20: Wright % (Auto) 7.0 % (3-13) 03/18/20 20: Eos % (Auto) 0.1 % (0-6) 03/18/20: Baso % (Auto) 0.3 % (0-2) 03/18/20 20: Absolute Neuts (auto) 8.3 10^3/uL (1.7-8.2) H 03/18/20 20: Absolute Lymphs (auto) 1.1 10^3/uL (0.5-4.7) 03/18/20 20: Absolute Monos (auto) 0.7 10^3/uL (0.1-1.4) 03/18/20 20: Absolute Eos (auto) 0.0 10^3/uL (0.0-0.6) 03/18/20: Absolute Basos (auto) 0.0 10^3/uL (0.0-0.2) 03/18/20: Seg Neutrophils % 81.3 % (42-78) H 03/18/20 20: Urine Color YELLOW 03/17/20 17:00 Urine Appearance CLOUDY 03/17/20 17:00 Urine pH 5.0 (5.0-9.0) 03/17/20 17:00 Ur Specific [place] 1.010 03/17/20 17:00 Urine Protein 30 mg/dL (NEGATIVE) H 03/17/20 17:00 Urine Glucose (UA) NEGATIVE mg/dL (NEGATIVE) 03/17/20 17:00 Urine Ketones NEGATIVE mg/dL (NEGATIVE) 03/17/20 17:00 Urine Blood NEGATIVE (NEGATIVE) 03/17/20 17:00 Urine Nitrite NEGATIVE (NEGATIVE) 03/17/20 17:00 Urine Bilirubin NEGATIVE (NEGATIVE) 03/17/20 17:00 Urine Urobilinogen NEGATIVE mg/dL (<2.0) 03/17/20 17:00 Ur Leukocyte Esterase MODERATE (NEGATIVE) H 03/17/20 17:00 Urine Ascorbic Acid NEGATIVE (NEGATIVE) 03/17/20 17:00 Urine Opiates Screen NEGATIVE 03/17/20 17:00 Urine Methadone Screen NEGATIVE 03/17/20 17:00 Ur Barbiturates Screen NEGATIVE 03/17/20 17:00 Ur Phencyclidine Scrn NEGATIVE 03/17/20 17:00 Ur Amphetamines Screen NEGATIVE 03/17/20 17:00 U Benzodiazepines Scrn NEGATIVE 03/17/20 17:00 Urine Cocaine Screen NEGATIVE 03/17/20 17:00 U Marijuana (THC) Screen NEGATIVE 03/17/20 17:00 RPR NONREACTIVE (NONREACTIVE) 03/17/20 17:10 Blood Type O POSITIVE 03/17/20 17:10 Blood Type Confirm O POSITIVE 03/18/20 17:55 Antibody Screen NEGATIVE 03/17/20 17:10 Crossmatch See Detail 03/17/20 17:10
[2020-03-20 13:27] VITALS: BP 118/74
== END 2020-03-20 18:20 | disposition home or self-care (01) | DRG 788 ==
LOC: LR 16:45 → 2S 03-18 20:10
PROVIDERS: ADMIT Obstetrics & Gynecology Gynecology; ATTEND Obstetrics & Gynecology Gynecology
PROC: 10D00Z1 Extraction of Products of Conception, Low, Open Approach (ICD-10-PCS; principal; 2020-03-18)
DX: O48.0 Post-term pregnancy (principal); Z3A.40 40 weeks gestation of pregnancy; Z37.0 Single live birth; O32.4XX0 Maternal care for high head at term, not applicable or unspecified
CPT/HCPCS: 1961; 36415; 80307; 81005; 85025; 85027; 86592; 86850; 86900; 86901; 86920; 94760; 94799; 99140; J0131; J0290; J1580; J1756; J1885; J2210; J2250; J2300; J2370; J2405; J2550; J2590; J3010; J3490; J7050; J7060; J7120

== ENCOUNTER 2020-04-01 10:52 | Inpatient (IN) | payer SELFPAY ==
[2020-04-01] MEDS ORDERED: ACETAMINOPHEN 325 MG TABLET PO ONE (11:11)
[2020-04-01] MEDS ORDERED: PIPERACILLIN/TAZOBACTAM 4.5 GM VIAL IV ONE (11:16)
[2020-04-01] MEDS ORDERED: CLINDAMYCIN 300 MG/D5W RTU 300 MG/50 ML RTUPB IV ONE (11:19)
--- NOTE | 2020-04-01 11:22 | ER Document Report ---
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 She states she had a on 18 March. She has had a fever every day since then. She states she has been taking the medicines that they gave her at the hospital but has not started the antibiotic the doctor ordered because they have not filled the prescription. She states she has had a fever every day from 9 AM to 3 PM. She states yesterday her temperature was 104. She states the doctor had told her to take ibuprofen every 8 hours and she has been taking 800 mg. She did take it this morning. She has been started on the septic protocol at this time. A consult Dr. Means antibiotic selection. I have greeted and performed a rapid initial assessment of this patient. A comprehensive ED assessment and evaluation of the patient, analysis of test results and completion of medical decision making process will be conducted by an additional ED providers. TRAVEL OUTSIDE OF THE [place] IN LAST 30 DAYS: No - Related Data Allergies/Adverse Reactions: No Known Allergies Allergy (Verified 03/17/20 17:18) Physical Exam - Vital signs Vitals: Temp Pulse Resp BP Pulse Ox 102.9 F H 128 H 20 107/72 97 04/01/20 10:59 04/01/20 10:59 04/01/20 10:59 04/01/20 10:59 04/01/20 10:59 Course - Vital Signs Vital signs: Temp Pulse Resp BP Pulse Ox 102.9 F H 128 H 20 107/72 97 04/01/20 10:59 04/01/20 10:59 04/01/20 10:59 04/01/20 10:59 04/01/20 10:59 Doctor's Discharge - Discharge Referrals: NOLAN LEA CNM [Primary Care Provider] - Follow up as needed
[2020-04-01] MEDS ORDERED: NORMAL SALINE 1000 ML 1,000 ML IV ONE ×3 (11:35→14:20)
[2020-04-01 12:01] LABS: ABSOLUTE LYMPHOCYTES (AUTO) 1.3 10^3/uL (0.5-4.7); ABSOLUTE MONOCYTES (AUTO) 0.7 10^3/uL (0.1-1.4); ABSOLUTE NEUT (AUTO) 10.2 10^3/uL (1.7-8.2); BASOPHILS % (AUTO) 0.4 % (0-2); EOSINOPHILS % (AUTO) 0.1 % (0-6); HEMATOCRIT 24.6 % (36.0-47.0); HEMOGLOBIN 8.1 g/dL (12.0-15.5); LYMPHOCYTES % (AUTO) 10.4 % (13-45); MEAN CORPUSCULAR HEMOGLOBIN 27.1 pg (27.0-33.4); MEAN CORPUSCULAR HGB CONC 32.8 g/dL (32.0-36.0); MEAN CORPUSCULAR VOLUME 83 fl (80-97); MONOCYTES % (AUTO) 5.3 % (3-13); PLATELET COUNT 283 10^3/uL (150-450); RED BLOOD COUNT 2.98 10^6/uL (3.72-5.28); RED CELL DISTRIBUTION WIDTH 15.4 % (11.5-14.0); SEGMENTED NEUTROPHILS % (AUTO) 83.8 % (42-78); TOTAL CELLS COUNTED % (AUTO) 100 %; WHITE BLOOD COUNT 12.2 10^3/uL (4.0-10.5)
[2020-04-01 12:11] LABS: INTERNATIONAL RATION (INR) 1.21; PROTHROMBIN TIME 15.5 SEC (11.4-15.4)
[2020-04-01 12:23] LABS: ALBUMIN 3.5 g/dL (3.5-5.0); ALKALINE PHOSPHATASE 144 U/L (38-126); ANION GAP 15 (5-19); ASPARTATE AMINO TRANSFERASE 34 U/L (14-36); BILIRUBIN,DIRECT 0.3 mg/dL (0.0-0.4); BILIRUBIN,TOTAL 0.5 mg/dL (0.2-1.3); BLOOD UREA NITROGEN 13 mg/dL (7-20); CALCIUM 8.8 mg/dL (8.4-10.2); CARBON DIOXIDE 22 mmol/L (22-30); CHLORIDE 99 mmol/L (98-107); GLUCOSE 120 mg/dL (75-110); POTASSIUM 4.3 mmol/L (3.6-5.0); TOTAL PROTEIN 6.5 g/dL (6.3-8.2)
--- NOTE | 2020-04-01 12:27 | RADIOLOGY REPORT (SQ) ---
EXAM DESCRIPTION: CHEST 2 VIEWS IMAGES COMPLETED DATE/TIME: 04/01/2020 12:12 pm REASON FOR STUDY: sepsis COMPARISON: None. EXAM PARAMETERS: NUMBER OF VIEWS: two views TECHNIQUE: Digital Frontal and Lateral radiographic views of the chest acquired. RADIATION DOSE: NA LIMITATIONS: none FINDINGS: LUNGS AND PLEURA: No opacities, masses or pneumothorax. No pleural effusion. MEDIASTINUM AND HILAR STRUCTURES: No masses or contour abnormalities. HEART AND VASCULAR STRUCTURES: Heart normal size. No evidence for failure. BONES: No acute findings. HARDWARE: None in the chest. OTHER: No other significant finding. IMPRESSION: NO ACUTE RADIOGRAPHIC FINDING IN THE CHEST. TECHNICAL DOCUMENTATION: JOB ID: [id number] 2010 [employer]- All Rights Reserved Reading location - IP/workstation name: [email or web address]
--- NOTE | 2020-04-01 12:47 | EKG REPORT ---
SEVERITY:- OTHERWISE NORMAL ECG - SINUS TACHYCARDIA INFERIOR Q WAVES, NORMAL VARIATION : Confirmed by: Edda Davey MD 01-Apr-2020 12:46:07
--- NOTE | 2020-04-01 13:37 | RADIOLOGY REPORT (SQ) ---
EXAM DESCRIPTION: U/S NON-OB PELVIS TV W/O DOP IMAGES COMPLETED DATE/TIME: 04/01/2020 1:22 pm REASON FOR STUDY: post fever/pain COMPARISON: None. TECHNIQUE: Dynamic and static grayscale images acquired of the pelvis via transvaginal approach and recorded on PACS. Additional selected color Doppler and spectral images recorded. LIMITATIONS: None. FINDINGS: UTERUS: Contour normal. No mass. ENDOMETRIAL STRIPE: Thickened with increased vascularity and complex configuration. CERVIX: 3.3 cm. No nabothian cysts. RIGHT OVARY AND DOPPLER: Normal size. No worrisome masses. Normal arterial vascular flow without evid ence for torsion. LEFT OVARY AND DOPPLER: Ovary not seen. FREE FLUID: None noted. OTHER: No other significant finding. MEASUREMENTS: UTERUS: 13 x 10 x 8 cm ENDOMETRIAL STRIPE: 5 cm RIGHT OVARY: 4 x 2 x 2 cm LEFT OVARY: Not seen. IMPRESSION: The appearance of the endometrium is concerning for retained products of conception. Ca nnot exclude infection. TECHNICAL DOCUMENTATION: JOB ID: [id number] 2010 [employer]- All Rights Reserved Rev-11/12 Reading location - IP/workstation name: [email or web address]
--- NOTE | 2020-04-01 14:14 | ER Document Report ---
ED General - General Chief Complaint: Post Problem Stated Complaint: POST PROBLEM Time Seen by Provider: 04/01/20 11:09 Primary Care Provider: NOLAN LEA CNM [NO LOCAL MD] - Follow up as needed Mode of Arrival: Wheelchair Information source: Patient, Relative - TRAVEL OUTSIDE OF THE [place] IN LAST 30 DAYS: No - HPI Notes: Patient presents with fever and abdominal pain. Patient states on March 182019 she had a performed at this hospital. She states she has had a fever every day since that time. She states she has followed up in the clinic and was given an antibiotic. According to patient has been taking the antibiotic but continues to have fevers. Her abdominal pain also continues to increase. It is in bilateral lower quadrants and worse with movement better with rest. It is severe constant and radiates across the abdomen. Is located mainly along the lines of the incision. She has not noticed any discharge from the incision. She has had no noticeable pus but is still having brownish discharge from her vaginal area. She has no breast pain. No vomiting or diarrhea. - Related Data Allergies/Adverse Reactions: No Known Allergies Allergy (Verified 03/17/20 17:18) Past Medical History - General Information source: Patient - Social History Smoking Status: Never Smoker Frequency of alcohol use: None Drug Abuse: None Family History: Reviewed & Not Pertinent Review of Systems - Review of Systems Constitutional: Chills, Fever, Malaise Cardiovascular: denies: Chest pain, Palpitations Respiratory: denies: Cough, Short of breath -: Yes All other systems reviewed and negative Physical Exam - Vital signs Vitals: Temp Pulse Resp BP Pulse Ox 102.9 F H 128 H 20 107/72 97 04/01/20 10:59 04/01/20 10:59 04/01/20 10:59 04/01/20 10:59 04/01/20 10:59 Interpretation: Tachycardic, Febrile - General General appearance: Alert In distress: None - HEENT Head: Normocephalic, Atraumatic Eyes: Normal Pupils: PERRL - Respiratory Respiratory status: No respiratory distress Chest status: Nontender Breath sounds: Normal Chest palpation: Normal - Cardiovascular Rhythm: Tachycardia Heart sounds: Normal auscultation Murmur: No - Abdominal Inspection: Other - Patient has a lower abdominal scar consistent with a C- section incision. The incision itself does not appear acutely infected and I do not appreciate any infectious discharge from the wound. The area all along the incision however is tender to palpation Distension: No distension Bowel sounds: Normal Tenderness: Nontender Organomegaly: No organomegaly - Back Back: Normal, Nontender - Extremities General upper extremity: Normal inspection, Nontender, Normal color, Normal ROM, Normal temperature General lower extremity: Normal inspection, Nontender, Normal color, Normal ROM, Normal temperature, Normal weight bearing. No: Brenda's sign - Neurological Neuro grossly intact: Yes Cognition: Normal Orientation: AAOx4 [place] Coma Scale Eye Opening: Spontaneous [place] Coma Scale Verbal: Oriented [place] Coma Scale Motor: Obeys Commands [place] Coma Scale Total: 15 Speech: Normal Motor strength normal: LUE, RUE, LLE, RLE Sensory: Normal - Psychological Associated symptoms: Normal affect, Normal mood - Skin Skin Temperature: Warm Skin Moisture: Dry Skin Color: Normal Course - Re-evaluation Re-evalutation: 04/01/20 14:13 Patient presents with fever and lower abdominal pain after . Ultrasound shows questionable retained products. Patient has had some tachycardia and fever here however her blood pressures been stable. She has been treated with IV fluids and antibiotics. I have consulted [facility] who is seen the patient in the emergency department. - Vital Signs Vital signs: Temp Pulse Resp BP Pulse Ox 99.5 F 128 H 18 107/75 98 04/01/20 13:27 04/01/20 10:59 04/01/20 12:13 04/01/20 12:13 04/01/20 12:13 - Laboratory Result Diagrams: 04/01/20 11:37 04/01/20 11:37 Laboratory results interpreted by me: 04/01/20 04/01/20 04/01/20 11:37 11:37 11:37 WBC 12.2 H RBC 2.98 L Hgb 8.1 L Hct 24.6 L RDW 15.4 H Lymph % (Auto) 10.4 L Absolute Neuts (auto) 10.2 H Seg Neutrophils % 83.8 H PT 15.5 H Sodium 135.7 L Glucose 120 H Lactic Acid Alkaline Phosphatase 144 H 04/01/20 11:37 WBC RBC Hgb Hct RDW Lymph % (Auto) Absolute Neuts (auto) Seg Neutrophils % PT Sodium Glucose Lactic Acid 2.3 H Alkaline Phosphatase - Diagnostic Test Radiology reviewed: Image reviewed, Reports reviewed Critical Care Note - Critical Care Note Total time excluding time spent on procedures (mins): 55 Comments: Approximate 55 minutes of critical care time were spent on this patient with septic endometritis. This time is been doing multiple reassessments. It was spent talking to multiple consultants. It was spent reviewing imaging and laboratory values. I spent reviewing old records. Discharge - Discharge Clinical Impression: Endometritis following delivery Sepsis Qualifiers: Sepsis type: sepsis due to unspecified organism Sepsis acute organ dysfunction status: without acute organ dysfunction Qualified Code(s): A41.9 - Sepsis, unspecified organism Condition: Serious Disposition: ADMITTED INPATIENT Admitting Provider: [facility] Unit Admitted: Medical Floor Referrals: NOLAN LEA CNM [NO LOCAL MD] - Follow up as needed
--- NOTE | 2020-04-01 14:31 | PDOC H&P ---
History of Present Illness Patient complains of: fever since c/section on 03/18/20 History of Present Illness: BRIAN ALBERT is a 24 year old female here with c/o fever, chills and abdominal pain since her c/section on 03/18/20. Patient indicates that she was seen at [facility] and given a prescription for antibiotics, however she never had the script filled. She presents today and findings significant for t emp of 102.9 and mild tachycardia. Past Surgical History Past Surgical History: Reports: Section - x 2 Social History Information Source: Patient, Relative Lives with: Family Smoking Status: Never Smoker Electronic Cigarette use?: No Frequency of Alcohol Use: None Hx Recreational Drug Use: No Drugs: None Hx Prescription Drug Abuse: No Family History Family History: Reviewed & Not Pertinent Parental Family History Reviewed: Yes Children Family History Reviewed: Yes Sibling(s) Family History Reviewed.: Yes Medication/Allergy Home Medications: Vit/Dha [ Multi + Dha Capsule] 1 cap PO DAILY 03/13/20 Docusate Sodium [Colace 100 mg Capsule] 100 mg PO BID #60 capsule 03/20/20 Ferrous Sulfate [Feosol 325 mg Tablet] 325 mg PO DAILY #30 tab 03/20/20 Ibuprofen [Motrin 800 mg Tablet] 800 mg PO Q8HP PRN #30 tablet 03/20/20 Oxycodone HCl/Acetaminophen [Percocet 5-325 mg Tablet] 1 tab PO Q4HP PRN #20 tablet 03/20/20 Allergies/Adverse Reactions: No Known Allergies Allergy (Verified 03/17/20 17:18) Physical Exam - Physical Exam Vital Signs: Temp Pulse Resp BP Pulse Ox 98.4 F 128 H 21 H 105/69 99 04/01/20 14:22 04/01/20 10:59 04/01/20 14:01 04/01/20 14:01 04/01/20 14:01 Intake & Output 03/31/20 04/01/20 04/02/20 06:59 06:59 06:59 Intake Total 1050 Balance 1050 Weight 69 kg General appearance: PRESENT: no acute distress, well-nourished - diaphoretic Head exam: PRESENT: normocephalic Eye exam: PRESENT: conjunctiva pale GI/Abdominal exam: PRESENT: soft, tenderness - at uterine fundus, fundus is at umbilicus Musculoskeletal exam: PRESENT: ambulatory, full ROM Skin exam: PRESENT: warm Result Laboratory Results: 04/01/20 11:37 04/01/20 11:37 04/01/20 04/01/20 04/01/20 11:37 11:37 11:37 WBC 12.2 H RBC 2.98 L Hgb 8.1 L Hct 24.6 L MCV 83 MCH 27.1 MCHC 32.8 RDW 15.4 H Plt Count 283 Seg Neutrophils % 83.8 H Sodium 135.7 L Potassium 4.3 Chloride 99 Carbon Dioxide 22 Anion Gap 15 BUN 13 Creatinine 0.52 Est GFR ( Amer) > 60 Glucose 120 H Lactic Acid 2.3 H Calcium 8.8 Total Bilirubin 0.5 AST 34 Alkaline Phosphatase 144 H Total Protein 6.5 Albumin 3.5 Impressions: Chest X-Ray 04/01/20 11:11 IMPRESSION: NO ACUTE RADIOGRAPHIC FINDING IN THE CHEST. Transvaginal US 04/01/20 11:50 IMPRESSION: The appearance of the endometrium is concerning for retained products of conception. Cannot exclude infection. Assessment & Plan - Diagnosis (1) Endometritis following delivery Is this a current diagnosis for this admission?: Yes (2) Sepsis Qualifiers: Sepsis type: sepsis due to unspecified organism Sepsis acute organ dysf unction status: without acute organ dysfunction Qualified Code(s): A41.9 - Sepsis, unspecified organism Is this a current diagnosis for this admission?: Yes (3) Status post primary low transverse section Is this a current diagnosis for this admission?: Yes - Time Time Spent: 30 to 50 Minutes Critical Time spent with patient: Less than 15 minutes Anticipated Discharge Disposition: Home, Self Care Anticipated Discharge Timeframe: within 48 hours - Inpatient Certification Based on my medical assessment, after consideration of the patient's comorbidities, presenting symptoms, or acuity I expect that the services needed warrant INPATIENT care.: Yes I certify that my determination is in accordance with my understanding of Medicare's requirements for reasonable and necessary INPATIENT services [42 CFR 412.3e].: Yes Medical Necessity: Need For IV Fluids, Need for IV Antibiotics - Plan Summary Plan Summary: admit for hydration and iv antibiotics. will monitor for signs of decompensation.
[2020-04-01] MEDS ORDERED: PIPERACILLIN/TAZOBACTAM 3.375 GM VIAL IV SCH (14:45)
[2020-04-01 17:42] LABS: VENOUS BLOOD BASE EXCESS -1.5 mmol/L; VENOUS BLOOD HCO3 23.5 mmol/L (20-32); VENOUS BLOOD PCO2 40.1 mmHg (35-63); VENOUS BLOOD PH 7.39 (7.30-7.42)
[2020-04-01] MEDS: PIPERACILLIN SODIUM/TAZOBACTAM 3.375 GM in NORMAL SALINE 100 ML IV SCH (18:17)
[2020-04-01] MEDS: RINGERS SOLUTION,LACTATED 1,000 ML IV PRN (18:24)
[2020-04-01] MEDS: CLINDAMYCIN 900 MG/D5W RTU 900 MG/50 ML RTUPB IV SCH (19:19)
[2020-04-01] MEDS: ACETAMINOPHEN 325 MG TABLET PO PRN (19:24)
[2020-04-01] MEDS: IBUPROFEN 800 MG TABLET PO SCH (22:11)
[2020-04-02] MEDS: PIPERACILLIN SODIUM/TAZOBACTAM 3.375 GM in NORMAL SALINE 100 ML IV SCH ×4 (00:09→18:46)
[2020-04-02] MEDS: CLINDAMYCIN 900 MG/D5W RTU 900 MG/50 ML RTUPB IV SCH ×3 (02:09→17:33)
[2020-04-02] MEDS: IBUPROFEN 800 MG TABLET PO SCH ×3 (05:47→21:38)
[2020-04-02] MEDS ORDERED: INFLUENZA QUAD (6MOS+) 2020-21 VAC 0.5 ML SYR IM ONE (08:00)
[2020-04-02 08:18] LABS: HEMATOCRIT 20.4 % (36.0-47.0); MEAN CORPUSCULAR HEMOGLOBIN 27.3 pg (27.0-33.4); MEAN CORPUSCULAR HGB CONC 32.9 g/dL (32.0-36.0); MEAN CORPUSCULAR VOLUME 83 fl (80-97); PLATELET COUNT 218 10^3/uL (150-450); RED BLOOD COUNT 2.46 10^6/uL (3.72-5.28); RED CELL DISTRIBUTION WIDTH 15.8 % (11.5-14.0)
[2020-04-02 08:20] LABS: HEMOGLOBIN 6.7 g/dL (12.0-15.5)
[2020-04-02] MEDS: RINGERS SOLUTION,LACTATED 1,000 ML IV PRN (09:18)
--- NOTE | 2020-04-02 09:26 | PDOC PROGRESS REPORT ---
Subjective Progress Note for:: 04/02/20 Subjective:: pt appears alert Reason For Visit: SEPSIS, STATUS POST C/SECTION, ENDOMETRITIS Physical Exam - Physical Exam Vital Signs: Temp Pulse Resp BP Pulse Ox 98.9 F 85 16 102/71 100 04/02/20 08:10 04/02/20 08:10 04/02/20 08:10 04/02/20 08:10 04/02/20 08:10 Intake & Output 04/01/20 04/02/20 04/03/20 06:59 06:59 06:59 Intake Total 3910 Output Total 1300 Balance 2610 Weight 68.4 kg General appearance: PRESENT: no acute distress Respiratory exam: PRESENT: clear to auscultation sol Cardiovascular exam: PRESENT: RRR GI/Abdominal exam: PRESENT: soft - incision clean no signs of infection Extremities exam: PRESENT: other - neg Result Laboratory Results: 04/02/20 07:17 04/01/20 11:37 04/01/20 04/01/20 04/01/20 11:37 11:37 11:37 WBC 12.2 H RBC 2.98 L Hgb 8.1 L Hct 24.6 L MCV 83 MCH 27.1 MCHC 32.8 RDW 15.4 H Plt Count 283 Seg Neutrophils % 83.8 H VBG pH VBG pCO2 VBG HCO3 VBG Base Excess Sodium 135.7 L Potassium 4.3 Chloride 99 Carbon Dioxide 22 Anion Gap 15 BUN 13 Creatinine 0.52 Est GFR ( Amer) > 60 Glucose 120 H Lactic Acid 2.3 H Calcium 8.8 Total Bilirubin 0.5 AST 34 Alkaline Phosphatase 144 H Total Protein 6.5 Albumin 3.5 04/01/20 04/01/20 04/01/20 15:37 17:31 17:31 WBC RBC Hgb Hct MCV MCH MCHC RDW Plt Count Seg Neutrophils % VBG pH 7.39 VBG pCO2 40.1 VBG HCO3 23.5 VBG Base Excess -1.5 Sodium Potassium Chloride Carbon Dioxide Anion Gap BUN Creatinine Est GFR ( Amer) Glucose Lactic Acid 0.9 0.7 Calcium Total Bilirubin AST Alkaline Phosphatase Total Protein Albumin 04/02/20 07:17 WBC 9.0 RBC 2.46 L Hgb 6.7 L Hct 20.4 L MCV 83 MCH 27.3 MCHC 32.9 RDW 15.8 H Plt Count 218 Seg Neutrophils % VBG pH VBG pCO2 VBG HCO3 VBG Base Excess Sodium Potassium Chloride Carbon Dioxide Anion Gap BUN Creatinine Est GFR ( Amer) Glucose Lactic Acid Calcium Total Bilirubin AST Alkaline Phosphatase Total Protein Albumin Impressions: Chest X-Ray 04/01/20 11:11 IMPRESSION: NO ACUTE RADIOGRAPHIC FINDING IN THE CHEST. Transvaginal US 04/01/20 11:50 IMPRESSION: The appearance of the endometrium is concerning for retained products of conception. Cannot exclude infection. Assessment & Plan - Time Time Spent with patient: Less than 15 minutes Level of Care: MEDICAL Medications reviewed and adjusted accordingly: Yes Anticipated discharge: Home Anticipated DC Timeframe: within 48 hours - Plan Summary Plan Summary: continue IV antibiotics for 24 hours then po meds
[2020-04-03] MEDS: PIPERACILLIN SODIUM/TAZOBACTAM 3.375 GM in NORMAL SALINE 100 ML IV SCH ×2 (00:17→05:58)
[2020-04-03] MEDS: RINGERS SOLUTION,LACTATED 1,000 ML IV PRN ×2 (00:19→12:20)
[2020-04-03] MEDS: CLINDAMYCIN 900 MG/D5W RTU 900 MG/50 ML RTUPB IV SCH ×3 (01:13→18:54)
[2020-04-03] MEDS: IBUPROFEN 800 MG TABLET PO SCH ×3 (05:56→21:34)
[2020-04-03] MEDS ORDERED: LIDOCAINE 1% INJ-PF (10 MG/ML) 30 ML SDV INJ ONE (09:02)
[2020-04-03] MEDS ORDERED: CEFTRIAXONE INJ 1000 MG VIAL IV SCH (09:15)
--- NOTE | 2020-04-03 09:38 | PDOC PROGRESS REPORT ---
Subjective Progress Note for:: 04/03/20 Subjective:: patient is feeling aboutthe same as on admission. Indicates that the pain is "a little better". Her fever is improved. Reason For Visit: SEPSIS, STATUS POST C/SECTION, ENDOMETRITIS Physical Exam - Physical Exam Vital Signs: Temp Pulse Resp BP Pulse Ox 98.8 F 88 17 105/68 97 04/03/20 08:15 04/03/20 07:22 04/03/20 07:22 04/03/20 07:22 04/03/20 07:22 Intake & Output 04/02/20 04/03/20 04/04/20 06:59 06:59 06:59 Intake Total 4910 1550 Output Total 1300 1800 Balance 3610 -250 Weight 68.4 kg 68 kg General appearance: PRESENT: no acute distress, cooperative GI/Abdominal exam: PRESENT: soft - area of subcutaneous firmness above incision that is consistent with seroma. no erythema or other indications of cellulitis. No drainage from incision. pt is quite tender on palpation Result Laboratory Results: 04/02/20 07:17 04/01/20 11:37 Impressions: Chest X-Ray 04/01/20 11:11 IMPRESSION: NO ACUTE RADIOGRAPHIC FINDING IN THE CHEST. Transvaginal US 04/01/20 11:50 IMPRESSION: The appearance of the endometrium is concerning for retained products of conception. Cannot exclude infection. Assessment & Plan - Diagnosis (1) Endometritis following delivery Is this a current diagnosis for this admission?: Yes (2) Sepsis Qualifiers: Sepsis type: sepsis due to unspecified organism Sepsis acute organ dysfunction status: without acute organ dysfunction Qualified Code(s): A41.9 - Sepsis, unspecified organism Is this a current diagnosis for this admission?: Yes (3) Status post primary low transverse section Is this a current diagnosis for this admission?: Yes - Time Time Spent with patient: 15-24 minutes Medications reviewed and adjusted accordingly: Yes Anticipated discharge: Home Anticipated DC Timeframe: within 24 hours - Inpatient Certification Based on my medical assessment, after consideration of the patient's comorbidities, presenting symptoms, or acuity I expect that the services needed warrant INPATIENT care.: Yes I certify that my determination is in accordance with my understanding of Medicare's requirements for reasonable and necessary INPATIENT services [42 CFR 412.3e].: Yes Medical Necessity: Need for IV Antibiotics - Plan Summary Plan Summary: patient is minimally better from her admission and her abdomen is still very tender. I'm going to stop the zosyn and change to Rocephin. Also will get a CT scan to assess pelvis further. I have reviewed her sono and I do not think there is retained products but I may consider a D&C based on patient's clinical course and CT results. BC have no growth as yet and WBC is improved. Will recheck that today.
[2020-04-03 09:54] LABS: HEMATOCRIT 19.2 % (36.0-47.0); MEAN CORPUSCULAR HEMOGLOBIN 26.9 pg (27.0-33.4); MEAN CORPUSCULAR VOLUME 82 fl (80-97); PLATELET COUNT 244 10^3/uL (150-450); RED BLOOD COUNT 2.35 10^6/uL (3.72-5.28); RED CELL DISTRIBUTION WIDTH 15.4 % (11.5-14.0); WHITE BLOOD COUNT 6.2 10^3/uL (4.0-10.5)
[2020-04-03 09:59] LABS: HEMOGLOBIN 6.3 g/dL (12.0-15.5)
[2020-04-03] MEDS: CEFTRIAXONE 1 GM/D5W RTU 1 GM/50 ML RTUPB IV SCH ×2 (11:04→21:39)
--- NOTE | 2020-04-03 11:30 | RADIOLOGY REPORT (SQ) ---
EXAM DESCRIPTION: CT ABD/PELVIS WITH IV ONLY IMAGES COMPLETED DATE/TIME: 04/03/2020 10:52 am REASON FOR STUDY: post c/section abdominal pain/endometritis COMPARISON: None. TECHNIQUE: CT scan of the abdomen and pelvis performed using helical scanning technique with dynamic intravenous contrast injection. No oral contrast. Images reviewed with lung, soft tissue, and bone w indows. Reconstructed coronal and sagittal MPR images reviewed. Delayed images for evaluation of the urinary system also acquired. All images stored on PACS. All CT scanners at this facility use dose modulation, iterative reconstruction, and/or weight based d osing when appropriate to reduce radiation dose to as low as reasonably achievable (ALARA). [facility]: Dose Right [facility]: CareDose [facility]: Dose Right [facility]: Teradose 4D [facility]: Schmoozer CONTRAST TYPE AND DOSE: contrast/concentration: Isovue 350.00 mmol/ml; Total Contrast Delivered: 78. 0 ml; Total Saline Delivered: 40.0 ml RENAL FUNCTION: None required. The patient is less than 50 years old. RADIATION DOSE: CT Rad equipment meets quality standard of care and radiation dose reduction techniq ues were employed. CTDIvol: 10.1 - 10.1 mGy. DLP: 1013 mGy-cm.. LIMITATIONS: None. FINDINGS: LOWER CHEST: Multiple small subpleural nodules in the left lower lobe, largest measuring 5 mm. LIVER: Normal size. No enhancing masses. No dilated ducts. SPLEEN: Normal size. No focal lesions. PANCREAS: No masses identified. No significant calcifications. No adjacent inflammation or peripancre atic fluid collections. Pancreatic duct not dilated. GALLBLADDER: Multiple non-calcified stones. No inflammatory changes to suggest cholecystitis. ADRENAL GLANDS: No significant masses. RIGHT KIDNEY AND URETER: No cysts identified. No solid masses identified. No calcified stones. No hyd ronephrosis or hydroureter. LEFT KIDNEY AND URETER: No cysts identified. No solid masses identified. No calcified stones. No hydr onephrosis or hydroureter. AORTA AND VESSELS: No aneurysm. No dissection. Renal arteries, SMA, celiac without significant stenos is. RETROPERITONEUM: Scattered retroperitoneal adenopathy. BOWEL AND PERITONEAL CAVITY: No obstruction or inflammatory changes. No free fluid. APPENDIX: Normal. PELVIS: 7.5 cm rim enhancing fluid the anterior periuterine soft tissue. There is also focal 2 cm th ickening and hypodensity in the lower rectus sheath in the region of prior incision this me asures approximate 4.5 cm greatest transverse dimension. Scattered inflammatory changes are present in the pre vesicular and upper periuterine -adnexal spaces. Unremarkable bladder. ABDOMINAL WALL: No masses. No hernias. BONES: No acute findings. OTHER: No other significant finding. IMPRESSION: 7.5 cm rim enhancing fluid the anterior periuterine soft tissue. There is also focal 2 cm thickening and hypodensity in the lower rectus sheath in the region of prior incision th is measures approximate 4.5 cm greatest transverse dimension. Scattered inflammatory changes are pre sent in the pre vesicular and upper periuterine -adnexal spaces. TECHNICAL DOCUMENTATION: JOB ID: [id number] [place]-72 Quality ID # [id number]: Final reports with documentation of one or more dose reduction techniques (e.g., Au tomated exposure control, adjustment of the mA and/or kV according to patient size, use of iterative reconstruction technique) 2010 Dr. Z- All Rights Reserved Reading location - IP/workstation name: [email or web address]
[2020-04-04] MEDS: ACETAMINOPHEN 325 MG TABLET PO PRN ×2 (00:21→18:50)
[2020-04-04] MEDS ORDERED: HYDROMORPHONE HCL INJ/PF 2 MG/ML AMPULE IV ONE (02:00)
[2020-04-04] MEDS: CLINDAMYCIN 900 MG/D5W RTU 900 MG/50 ML RTUPB IV SCH ×3 (02:36→20:52)
[2020-04-04] MEDS: IBUPROFEN 800 MG TABLET PO SCH (06:22)
[2020-04-04] MEDS ORDERED: DEXTROSE 50%-WATER 25 GM/50 ML DISP.SYRIN IV PRN ×2 (07:02)
[2020-04-04] MEDS ORDERED: GLUCAGON,HUMAN RECOMB 1 MG INJ SUBCUT PRN (07:02)
[2020-04-04] MEDS ORDERED: DEXTROSE 40% GEL 15 GM TUBE PO PRN ×2 (07:02)
[2020-04-04 07:51] LABS: MEAN CORPUSCULAR HEMOGLOBIN 27.2 pg (27.0-33.4); MEAN CORPUSCULAR HGB CONC 33.5 g/dL (32.0-36.0); MEAN CORPUSCULAR VOLUME 81 fl (80-97); PLATELET COUNT 237 10^3/uL (150-450); RED BLOOD COUNT 2.21 10^6/uL (3.72-5.28); RED CELL DISTRIBUTION WIDTH 15.8 % (11.5-14.0)
[2020-04-04 08:39] LABS: ANION GAP 9 (5-19); BLOOD UREA NITROGEN 5 mg/dL (7-20); CARBON DIOXIDE 26 mmol/L (22-30); CHLORIDE 103 mmol/L (98-107); GLUCOSE 79 mg/dL (75-110); POTASSIUM 3.9 mmol/L (3.6-5.0)
--- NOTE | 2020-04-04 08:50 | PDOC PROGRESS REPORT ---
Subjective Progress Note for:: 04/04/20 Subjective:: Reports fever over night and abdominal pain. Pain is improved with IV pain meds this am and she states no pain. SHe is voiding without incidence. NO burning or frequency. She has moved her bowels and denies diarrhea or constipation. Continues to pass gas. NO drainage from incision. States feels hard above her incision. Vaginal bleeding is light Reason For Visit: SEPSIS, STATUS POST C/SECTION, ENDOMETRITIS Physical Exam - Physical Exam Vital Signs: Temp Pulse Resp BP Pulse Ox 97.7 F 74 18 100/56 L 95 04/04/20 03:47 04/04/20 03:47 04/04/20 03:47 04/04/20 03:47 04/04/20 03:47 Intake & Output 04/03/20 04/04/20 04/05/20 06:59 06:59 06:59 Intake Total 1550 1150 Output Total 1800 2450 Balance -250 -1300 Weight 68 kg 68.9 kg General appearance: PRESENT: no acute distress, cooperative Respiratory exam: PRESENT: clear to auscultation sol Cardiovascular exam: PRESENT: RRR, +S1, +S2 GI/Abdominal exam: PRESENT: normal bowel sounds, soft, tenderness - Tender in area above her incision centrally. It feels firm here in an area about 12-15 cm x 10 cm . NO fluctuance is appreciated. It feels slightly warm and skin over area looks slightly pink. Incision is dry and intact. A few resorbable staple edges can be seen but appear intact. Incision does not have evidence of infection or drainage. Psychiatric exam: PRESENT: appropriate affect Skin exam: PRESENT: dry, intact, warm. ABSENT: cyanosis, rash Result Laboratory Results: 04/04/20 07:14 04/03/20 04/04/20 09:26 07:14 WBC 6.2 5.0 RBC 2.35 L 2.21 L Hgb 6.3 L 6.0 L Hct 19.2 L 18.0 L MCV 82 81 MCH 26.9 L 27.2 MCHC 33.0 33.5 RDW 15.4 H 15.8 H Plt Count 244 237 Impressions: Chest X-Ray 04/01/20 11:11 IMPRESSION: NO ACUTE RADIOGRAPHIC FINDING IN THE CHEST. Transvaginal US 04/01/20 11:50 IMPRESSION: The appearance of the endometrium is concerning for retained products of conception. Cannot exclude infection. Abdomen/Pelvis CT 04/03/20 00:00 IMPRESSION: 7.5 cm rim enhancing fluid the anterior periuterine soft tissue. There is also focal 2 cm thickening and hypodensity in the lower rectus sheath in the region of prior incision this measures approximate 4.5 cm greatest transverse dimension. Scattered inflammatory changes are present in the pre vesicular and upper periuterine -adnexal spaces. Assessment & Plan - Diagnosis (4) Acute blood loss anemia Is this a current diagnosis for this admission?: Yes - Time Time Spent with patient: 15-24 minutes - Used Desire: # [id number] Medications reviewed and adjusted accordingly: Yes Anticipated discharge: Home Anticipated DC Timeframe: within 36 hours Disposition: Fair - Plan Summary Plan Summary: 24 yo s/p CS on 03/18/20 now with abdominal pain, fevers and anemia -VSS this am. Did have fever in night of 100.4 F -Exam as above: questionable abdominal wall hematoma vs infected hematoma: CT pending. COntinue IV antibiotic regimen. If CT shows area that may be able to be aspirated the possible IR ?? -General surgery consulted last night for recommendations as well. -Hgb 6.0 today. WIll discuss transfusion with patient. She denies SOB, Dizziness this am but I think she will feel better sooner with 2 units PRBC -CT with IV and oral contrast pending
[2020-04-04] MEDS ORDERED: NORMAL SALINE 250 ML IV PRN ×2 (09:30)
--- NOTE | 2020-04-04 10:22 | PDOC CONSULTATION ---
Consultation Consult Date: 04/04/20 Provider Consulted: KARL DYSON Consult reason:: Abdominal pain, subcutaneous and intraperitoneal fluid collection History of Present Illness Admission Date/PCP: 04/01/20 14:43 History of Present Illness: BRIAN ALBERT is a 24 year old female, status post on March 18, admitted on April 01, 2020 with a complaint of abdominal pain low-grade temperature elevated white count of 12.2. The patient was started on IV antibiotics Rocephin and clindamycin with improvement of white blood cell count and pain. However, the patient is still complaining of lower midline abdominal discomfort and this morning she had a low-grade temperature 100.8. A CAT scan of the abdomen pelvis done on 04/03/2020 reveals 2 fluid collections 1 subcutaneous and 1 intra-abdominal along the midline, no gas and defied within each fluid collection. Past Medical History Psychiatric Medical History: Denies: Depression Past Surgical History Past Surgical History: Reports: Section - x 2 Social History Lives with: Family Smoking Status: Never Smoker Electronic Cigarette use?: No Frequency of Alcohol Use: None Hx Recreational Drug Use: No Drugs: None Hx Prescription Drug Abuse: No Family History Family History: Reviewed & Not Pertinent Parental Family History Reviewed: No Children Family History Reviewed: No Sibling(s) Family History Reviewed.: No Medication/Allergy Home Medications: Vit/Dha [ Multi + Dha Capsule] 1 cap PO DAILY 03/13/20 Ibuprofen [Motrin 800 mg Tablet] 800 mg PO Q8HP PRN #30 tablet 03/20/20 Cephalexin [Cephalexin 500 MG Tablet] 500 mg PO Q6 MDD FILLED 03/26 FOR 7 DAYS 1 Allergies/Adverse Reactions: No Known Allergies Allergy (Verified 03/17/20 17:18) Physical Exam Vital Signs: Temp Pulse Resp BP Pulse Ox 97.3 F 71 16 100/60 96 04/04/20 07:52 04/04/20 07:52 04/04/20 07:52 04/04/20 07:52 04/04/20 07:52 Intake & Output 04/03/20 04/04/20 04/05/20 06:59 06:59 06:59 Intake Total 1550 1150 Output Total 1800 2450 Balance -250 -1300 Weight 68 kg 68.9 kg General appearance: PRESENT: no acute distress, obese, well-developed Head exam: PRESENT: atraumatic Mouth exam: PRESENT: neck supple Neck exam: PRESENT: full ROM Respiratory exam: PRESENT: clear to auscultation sol Cardiovascular exam: PRESENT: RRR GI/Abdominal exam: PRESENT: distended, soft, tenderness - Indurated subcutaneous mass identified in the lower midline area below the umbilicus, other - Lower abdominal Pfanelstein incision well-healed Neurological exam: PRESENT: alert, awake Psychiatric exam: PRESENT: appropriate affect Skin exam: PRESENT: warm Results Laboratory Results: 04/04/20 07:14 04/04/20 07:14 04/04/20 04/04/20 07:14 07:14 WBC 5.0 RBC 2.21 L Hgb 6.0 L Hct 18.0 L MCV 81 MCH 27.2 MCHC 33.5 RDW 15.8 H Plt Count 237 Sodium 137.6 Potassium 3.9 Chloride 103 Carbon Dioxide 26 Anion Gap 9 BUN 5 L Creatinine 0.52 Est GFR ( Amer) > 60 Glucose 79 Calcium 8.0 L Impressions: Chest X-Ray 04/01/20 11:11 IMPRESSION: NO ACUTE RADIOGRAPHIC FINDING IN THE CHEST. Transvaginal US 04/01/20 11:50 IMPRESSION: The appearance of the endometrium is concerning for retained products of conception. Cannot exclude infection. Abdomen/Pelvis CT 04/03/20 00:00 IMPRESSION: 7.5 cm rim enhancing fluid the anterior periuterine soft tissue. There is also focal 2 cm thickening and hypodensity in the lower rectus sheath in the region of prior incision this measures approximate 4.5 cm greatest transverse dimension. Scattered inflammatory changes are present in the pre vesicular and upper periuterine -adnexal spaces. Assessment & Plan - Diagnosis (1) intraperitoneal fluid Is this a current diagnosis for this admission?: Yes (2) Postoperative hematoma of subcutaneous tissue Is this a current diagnosis for this admission?: Yes (3) Status post primary low transverse section Is this a current diagnosis for this admission?: Yes - Plan Summary Plan Summary: Assessment: Healthy 24-year-old female status post on March 18, 2020 Patient admitted on March for leukocytosis, fever, abdominal pain Patient leukocytosis and pain improved following administration of IV antibiotics (Rocephin and clindamycin CT scan abdomen pelvis significant for 2 fluid collection 1 subcutaneous and 1 intraperitoneal on the lower midline incision, most likely represent postsurgical hematoma, no air identified in each fluid collection Physical exam of the abdomen reveals an indurated painful area along the midline below the umbilicus Plan: Keep n.p.o. Continue IV fluids Continue IV antibiotics Obtain CT scan abdomen pelvis with IV and oral contrast to rule out a possible bowel injury as a cause of the intraperitoneal fluid collection Following above CT, if no bowel injury is identified, the fluid collections can be drained under ultrasound or CT guidance by interventional radiology with drain left in place and cultures of the fluid taken
[2020-04-04] MEDS: RINGERS SOLUTION,LACTATED 1,000 ML IV PRN (11:01)
[2020-04-04] MEDS: CEFTRIAXONE 1 GM/D5W RTU 1 GM/50 ML RTUPB IV SCH ×2 (11:59→22:53)
[2020-04-04 12:37] LABS: APPEARANCE,URINE SLIGHTLY-CLOUDY; BILIRUBIN,URINE NEGATIVE (NEGATIVE); COLOR,URINE YELLOW; GLUCOSE, URINE NEGATIVE (NEGATIVE); KETONES,URINE NEGATIVE (NEGATIVE); LEUKOCYTE ESTERASE,URINE NEGATIVE (NEGATIVE); NITRITE,URINE NEGATIVE (NEGATIVE); PROTEIN,URINE NEGATIVE (NEGATIVE); UROBILINOGEN,URINE NEGATIVE mg/dL (<2.0)
[2020-04-04] MEDS ORDERED: FENTANYL CITRATE INJ/PF 100 MCG/2 ML AMPUL ONE (12:41)
[2020-04-04] MEDS ORDERED: MIDAZOLAM 2 MG/2 ML INJ ONE (12:41)
--- NOTE | 2020-04-04 12:54 | RADIOLOGY REPORT (SQ) ---
EXAM DESCRIPTION: CT ABD/PELVIS WITH IV ORAL IMAGES COMPLETED DATE/TIME: 04/04/2020 12:30 pm REASON FOR STUDY: continued abdominal pain and fever. Surg consult COMPARISON: 04/03/2020 TECHNIQUE: CT scan of the abdomen and pelvis performed using helical scanning technique with dynamic intravenous contrast injection. Oral contrast. Images reviewed with lung, soft tissue, and bone win dows. Reconstructed coronal and sagittal MPR images reviewed. Delayed images for evaluation of the ur inary system also acquired. All images stored on PACS. All CT scanners at this facility use dose modulation, iterative reconstruction, and/or weight based d osing when appropriate to reduce radiation dose to as low as reasonably achievable (ALARA). [facility]: Dose Right [facility]: CareDose [facility]: Dose Right [facility]: Teradose 4D [facility]: Bridge CONTRAST TYPE AND DOSE: contrast/concentration: Isovue 350.00 mmol/ml; Total Contrast Delivered: 78. 0 ml; Total Saline Delivered: 40.0 ml RENAL FUNCTION: BUN 5 creatinine 0.52 RADIATION DOSE: CT Rad equipment meets quality standard of care and radiation dose reduction techniq ues were employed. CTDIvol: 9.5 - 9.5 mGy. DLP: 952 mGy-cm.. LIMITATIONS: None. FINDINGS: LOWER CHEST: No significant findings. No nodules or infiltrates. LIVER: Normal size. No masses. No dilated ducts. SPLEEN: Mild splenomegaly. PANCREAS: No masses. No significant calcifications. No adjacent inflammation or peripancreatic fluid collections. Pancreatic duct not dilated. GALLBLADDER: No identified stones by CT criteria. No inflammatory changes to suggest cholecystitis. ADRENAL GLANDS: No significant masses or asymmetry. RIGHT KIDNEY AND URETER: No solid masses. No significant calcifications. No hydronephrosis or hyd roureter. LEFT KIDNEY AND URETER: No solid masses. No significant calcifications. No hydronephrosis or hydr oureter. AORTA AND VESSELS: No aneurysm. No dissection. Renal arteries, SMA, celiac without stenosis. RETROPERITONEUM: No retroperitoneal adenopathy, hemorrhage or masses. BOWEL AND PERITONEAL CAVITY: No masses or inflammatory changes. No free fluid or peritoneal masses. APPENDIX: Not identified. PELVIS: There is a 37 x 69 mm persistent fluid collection anterior to the uterus. They are appears t o be hyperemia in the uterine vessels. ABDOMINAL WALL: There is thickening of the rectus sheath in the region of the . In the midl ine there is a fluid collection measuring 52 x 26 mm. BONES: No significant or acute findings. OTHER: No other significant finding. IMPRESSION: 1. Mild splenomegaly. 2. There is 37 x 69 mm fluid collection anterior to the uterus. Likely hematoma, cannot exclude abs cess. 3. There is a 52 x 26 mm fluid collection within the rectus sheath. Likely hematoma. Cannot exclud e abscess. 4. There is hyperemia in the uterine vessels. This may indicate on the inflammatory changes. Could be secondary to pelvic congestion syndrome. TECHNICAL DOCUMENTATION: JOB ID: [id number] Quality ID # [id number]: Final reports with documentation of one or more dose reduction techniques (e.g., Au tomated exposure control, adjustment of the mA and/or kV according to patient size, use of iterative reconstruction technique) 2010 [email or web address]- All Rights Reserved Reading location - IP/workstation name: [email or web address]
--- NOTE | 2020-04-04 15:13 | RADIOLOGY REPORT (SQ) ---
EXAM DESCRIPTION: CT FLUID DRAINAGE WITH CATH IMAGES COMPLETED DATE/TIME: 04/04/2020 2:15 pm REASON FOR STUDY: ABCESS COMPARISON: None. TECHNIQUE: CT guided aspiration of 2 lower abdominopelvic fluid collections performed with conscious sedation. CT Fluoroscopy Time: 1 minutes [address] scanners at this facility use dose modulation, iterative reconstruction, and/or weight based d osing when appropriate to reduce radiation dose to as low as reasonably achievable (ALARA). [facility]: Dose Right [facility]: CareDose [facility]: Dose Right [facility]: Teradose 4D [facility]: [facility] [employer] RADIATION DOSE: CT Rad equipment meets quality standard of care and radiation dose reduction techni ques were employed. CTDIvol: 6.7 - 32.4 mGy. DLP: 884 mGy-cm.mGy. FINDINGS: After obtaining informed consent and explaining the risks and benefits of conscious sedati on,the patient agreed to the procedure. Prior to the procedure, a time out was performed to verify th e patient's identity and planned procedure. IV sedation was administered and physician direction by the registered nurse using 2 milligrams of Ve rsed and 100 micrograms of fentanyl, for conscious sedation. Physiologic monitoring was provided befo re, during, and after sedation. The total sedation time was 60 minutes. Documentation face to face time, the performing proceduralist, spent monitoring the patient: [address] scanning was performed to localize the percutaneous site for the biopsy approach. After sterile skin prep and local lidocaine for skin and deep tissue anesthesia, a coaxial biopsy nee dle was used to aspirate serosanguineous fluid/thrombus from both fluid collections. Approximately 5 cc from the more superficial fluid collection. There were no immediate complications. Pathology is pending at the time of dictation. IMPRESSION: CT GUIDED ASPIRATION OF 2 FLUID COLLECTION WITHOUT IMMEDIATE COMPLICATION. PATHOLOGY PE NDING. COMMENT: Quality ID [id number]: Final reports for procedures using fluoroscopy that document radiation exp osure indices, or exposure time and number of fluorographic images (if radiation exposure indices are not available) Patient medication list reviewed: Yes- Quality ID# [id number]:Eligible professional attests to documenting i n the medical record they obtained, updated, or reviewed the patient's current medications.. TECHNICAL DOCUMENTATION: JOB ID: [id number] Quality ID# [id number]: Final reports with documentation of one or more dose reduction techniques (e.g., Aut omated exposure control, adjustment of the mA and/or kV according to patient size, use of iterative r econstruction technique) 2010 [employer]- All Rights Reserved Reading location - IP/workstation name: [email or web address]
[2020-04-04 21:58] LABS: HEMATOCRIT 23.7 % (36.0-47.0); MEAN CORPUSCULAR HEMOGLOBIN 27.9 pg (27.0-33.4); MEAN CORPUSCULAR HGB CONC 33.5 g/dL (32.0-36.0); MEAN CORPUSCULAR VOLUME 83 fl (80-97); PLATELET COUNT 266 10^3/uL (150-450); RED BLOOD COUNT 2.85 10^6/uL (3.72-5.28); RED CELL DISTRIBUTION WIDTH 15.9 % (11.5-14.0); WHITE BLOOD COUNT 6.1 10^3/uL (4.0-10.5)
[2020-04-04 22:42] LABS: HEMOGLOBIN 7.9 g/dL (12.0-15.5)
[2020-04-05] MEDS: CLINDAMYCIN 900 MG/D5W RTU 900 MG/50 ML RTUPB IV SCH ×3 (01:55→17:13)
[2020-04-05] MEDS: HYDROCODONE/ACETAMINOPHEN 5-325 MG TABLET PO PRN ×2 (03:03→19:46)
[2020-04-05] MEDS: IBUPROFEN 800 MG TABLET PO SCH ×3 (06:38→21:27)
[2020-04-05 08:41] LABS: ABSOLUTE EOSINOPHILS # (AUTO) 0.1 10^3/uL (0.0-0.6); ABSOLUTE LYMPHOCYTES (AUTO) 1.2 10^3/uL (0.5-4.7); ABSOLUTE MONOCYTES (AUTO) 0.3 10^3/uL (0.1-1.4); ABSOLUTE NEUT (AUTO) 4.6 10^3/uL (1.7-8.2); BASOPHILS % (AUTO) 0.6 % (0-2); HEMATOCRIT 23.3 % (36.0-47.0); LYMPHOCYTES % (AUTO) 18.9 % (13-45); MEAN CORPUSCULAR VOLUME 82 fl (80-97); MONOCYTES % (AUTO) 5.5 % (3-13); PLATELET COUNT 268 10^3/uL (150-450); RED BLOOD COUNT 2.83 10^6/uL (3.72-5.28); RED CELL DISTRIBUTION WIDTH 15.6 % (11.5-14.0); TOTAL CELLS COUNTED % (AUTO) 100 %; WHITE BLOOD COUNT 6.3 10^3/uL (4.0-10.5)
[2020-04-05 08:47] LABS: HEMOGLOBIN 7.9 g/dL (12.0-15.5)
[2020-04-05] MEDS: CEFTRIAXONE 1 GM/D5W RTU 1 GM/50 ML RTUPB IV SCH ×2 (13:10→21:25)
--- NOTE | 2020-04-05 14:16 | PDOC PROGRESS REPORT ---
Subjective Progress Note for:: 04/05/20 Subjective:: 24-year-old female admitted with intra-and extra abdominal hematomas. Hematomas were drained yesterday via interventional radiology. No drain was left in place. The patient reports decreased abdominal pain. She denies fevers or chills. Conversation is difficult, because the patient does not speak Arabic. She appears comfortable. Reason For Visit: SEPSIS, STATUS POST C/SECTION, ENDOMETRITIS Physical Exam Vital Signs: Temp Pulse Resp BP Pulse Ox 98.0 F 77 17 126/75 H 95 04/05/20 10:56 04/05/20 10:56 04/05/20 10:56 04/05/20 10:56 04/05/20 10:56 Intake & Output 04/04/20 04/05/20 04/06/20 06:59 06:59 06:59 Intake Total 1250 250 300 Output Total 2450 3200 Balance -1200 -2950 300 Weight 68.9 kg 68.2 kg General appearance: PRESENT: no acute distress, cooperative Head exam: PRESENT: atraumatic, normocephalic Eye exam: PRESENT: EOMI, PERRLA. ABSENT: scleral icterus Mouth exam: PRESENT: moist, neck supple Neck exam: ABSENT: meningismus, tenderness, thyromegaly Respiratory exam: PRESENT: unlabored. ABSENT: tachypnea, wheezes Cardiovascular exam: ABSENT: tachycardia GI/Abdominal exam: PRESENT: soft, tenderness - Lower abdominal midline., other - Induration around surgical incision. No significant erythema. Some bruising evident.. ABSENT: distended Rectal exam: PRESENT: deferred Extremities exam: ABSENT: clubbing Musculoskeletal exam: ABSENT: deformity Neurological exam: PRESENT: alert, awake Psychiatric exam: ABSENT: agitated, anxious, depressed Skin exam: ABSENT: cyanosis, erythema, jaundice Results Laboratory Results: 04/05/20 07:26 04/04/20 07:14 04/04/20 04/04/20 04/05/20 10:08 21:40 07:26 WBC 6.1 6.3 RBC 2.85 L 2.83 L Hgb 7.9 L 7.9 L Hct 23.7 L 23.3 L MCV 83 82 MCH 27.9 28.0 MCHC 33.5 34.0 RDW 15.9 H 15.6 H Plt Count 266 268 Seg Neutrophils % 73.0 Blood Type O POSITIVE Antibody Screen NEGATIVE Impressions: Chest X-Ray 04/01/20 11:11 IMPRESSION: NO ACUTE RADIOGRAPHIC FINDING IN THE CHEST. Transvaginal US 04/01/20 11:50 IMPRESSION: The appearance of the endometrium is concerning for retained products of conception. Cannot exclude infection. Abdomen/Pelvis CT 04/04/20 00:00 IMPRESSION: 1. Mild splenomegaly. 2. There is 37 x 69 mm fluid collection anterior to the uterus. Likely hematoma, cannot exclude abscess. 3. There is a 52 x 26 mm fluid collection within the rectus sheath. Likely hematoma. Cannot exclude abscess. 4. There is hyperemia in the uterine vessels. This may indicate on the inflammatory changes. Could be secondary to pelvic congestion syndrome. Drainage Catheter Insertion 04/04/20 00:00 IMPRESSION: CT GUIDED ASPIRATION OF 2 FLUID COLLECTION WITHOUT IMMEDIATE COMPLICATION. PATHOLOGY PENDING. Assessment & Plan - Diagnosis (1) Hematoma Is this a current diagnosis for this admission?: Yes - Time Anticipated Discharge Disposition: unknown Anticipated Discharge Timeframe: unknown - Plan Summary Plan Summary: 24-year-old female who had percutaneous drainage of an intra-and extra abdominal hematoma. They appear to be related to a previous . She denies pain today. Her white blood cell count is normal. She appears comfortable. There is induration and bruising present, but no significant erythema. The patient would like to avoid surgical intervention if possible. Continue antibiotics. Monitor closely. Surgery will sign off at this time. Please renotify if we can be of any further service.
--- NOTE | 2020-04-05 18:18 | PDOC PROGRESS REPORT ---
Subjective Progress Note for:: 04/05/20 Subjective:: s/p Drain of fluid collection Intra-abdominal and likely rectus sheath hematoma Reason For Visit: SEPSIS, STATUS POST C/SECTION, ENDOMETRITIS, wound hematoma Physical Exam - Physical Exam Vital Signs: Temp Pulse Resp BP Pulse Ox 98.0 F 77 17 126/75 H 95 04/05/20 10:56 04/05/20 10:56 04/05/20 10:56 04/05/20 10:56 04/05/20 10:56 Intake & Output 04/04/20 04/05/20 04/06/20 06:59 06:59 06:59 Intake Total 1250 200 300 Output Total 2450 3200 Balance -1200 -3000 300 Weight 68.9 kg 68.2 kg General appearance: PRESENT: no acute distress, well-developed, well-nourished Head exam: PRESENT: atraumatic, normocephalic Neck exam: PRESENT: full ROM. ABSENT: carotid bruit, JVD, lymphadenopathy, thyromegaly Respiratory exam: PRESENT: clear to auscultation sol, symmetrical, unlabored Cardiovascular exam: PRESENT: RRR. ABSENT: diastolic murmur, rubs, systolic murmur GI/Abdominal exam: PRESENT: normal bowel sounds, soft, tenderness - just above incision indurated area, site marked with marker. Appears similar size to represented on CT scan. no drainage, some insorb dory visible.. ABSENT: distended, guarding, mass, organolmegaly, rebound Rectal exam: PRESENT: deferred Extremities exam: PRESENT: full ROM. ABSENT: calf tenderness, clubbing, pedal edema Neurological exam: PRESENT: alert, awake, oriented to person, oriented to place, oriented to time, oriented to situation, CN II-XII grossly intact. ABSENT: motor sensory deficit Psychiatric exam: PRESENT: appropriate affect, normal mood. ABSENT: homicidal ideation, suicidal ideation Skin exam: PRESENT: dry, intact, warm. ABSENT: cyanosis, rash Result Laboratory Results: 04/05/20 07:26 04/04/20 07:14 04/04/20 04/04/20 04/04/20 10:08 11:50 21:40 WBC 6.1 RBC 2.85 L Hgb 7.9 L Hct 23.7 L MCV 83 MCH 27.9 MCHC 33.5 RDW 15.9 H Plt Count 266 Seg Neutrophils % Urine Color YELLOW Urine Appearance SLIGHTLY-CLOUDY Urine pH 6.0 Ur Specific Dante 1.010 Urine Protein NEGATIVE Urine Glucose (UA) NEGATIVE Urine Ketones NEGATIVE Urine Blood MODERATE H Urine Nitrite NEGATIVE Ur Leukocyte Esterase NEGATIVE Urine WBC (Auto) 5 Urine RBC (Auto) 6 Blood Type O POSITIVE Antibody Screen NEGATIVE 04/05/20 07:26 WBC 6.3 RBC 2.83 L Hgb 7.9 L Hct 23.3 L MCV 82 MCH 28.0 MCHC 34.0 RDW 15.6 H Plt Count 268 Seg Neutrophils % 73.0 Urine Color Urine Appearance Urine pH Ur Specific Dante Urine Protein Urine Glucose (UA) Urine Ketones Urine Blood Urine Nitrite Ur Leukocyte Esterase Urine WBC (Auto) Urine RBC (Auto) Blood Type Antibody Screen Impressions: Chest X-Ray 04/01/20 11:11 IMPRESSION: NO ACUTE RADIOGRAPHIC FINDING IN THE CHEST. Transvaginal US 04/01/20 11:50 IMPRESSION: The appearance of the endometrium is concerning for retained products of conception. Cannot exclude infection. Abdomen/Pelvis CT 04/04/20 00:00 IMPRESSION: 1. Mild splenomegaly. 2. There is 37 x 69 mm fluid collection anterior to the uterus. Likely hematoma, cannot exclude abscess. 3. There is a 52 x 26 mm fluid collection within the rectus sheath. Likely hematoma. Cannot exclude abscess. 4. There is hyperemia in the uterine vessels. This may indicate on the inflammatory changes. Could be secondary to pelvic congestion syndrome. Drainage Catheter Insertion 04/04/20 00:00 IMPRESSION: CT GUIDED ASPIRATION OF 2 FLUID COLLECTION WITHOUT IMMEDIATE COMPLICATION. PATHOLOGY PENDING. Assessment & Plan - Diagnosis (1) Postoperative hematoma of subcutaneous tissue Is this a current diagnosis for this admission?: Yes Plan: temp 100.8 midnight 04/04 and otherwise last highest temp 100.1 at 1840s. She denies chills, VSS stable this am and patient reports that pain is better but above incision still hard. reviewed plan of care. Continue with abd binder. Continue with observation and Abx. Cultures pendng. Once able to be afebrile for 48 hours would be reasonable to discharge to home with po abx. May still have to be drained at some point. (2) intraperitoneal fluid Is this a current diagnosis for this admission?: Yes (3) Status post primary low transverse section Is this a current diagnosis for this admission?: Yes - Time Time Spent with patient: Less than 15 minutes Medications reviewed and adjusted accordingly: Yes Anticipated discharge: Home Anticipated DC Timeframe: within 48 hours - Inpatient Certification Based on my medical assessment, after consideration of the patient's comorbidities, presenting symptoms, or acuity I expect that the services needed warrant INPATIENT care.: Yes I certify that my determination is in accordance with my understanding of Medicare's requirements for reasonable and necessary INPATIENT services [42 CFR 412.3e].: Yes Medical Necessity: Need Close Monitoring Due to Risk of Patient Decompensation, Need for Pain Control, Need for IV Antibiotics 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
[2020-04-05] MEDS: RINGERS SOLUTION,LACTATED 1,000 ML IV PRN (21:00)
[2020-04-06] MEDS: CLINDAMYCIN 900 MG/D5W RTU 900 MG/50 ML RTUPB IV SCH ×2 (02:14→10:20)
[2020-04-06] MEDS: IBUPROFEN 800 MG TABLET PO SCH ×2 (05:25→14:24)
[2020-04-06] MEDS: CEFTRIAXONE 1 GM/D5W RTU 1 GM/50 ML RTUPB IV SCH (09:22)
--- NOTE | 2020-04-06 13:06 | PDOC DISCHARGE SUMMARY ---
Impression - Admit/DC Date/PCP Admission Date/Primary Care Provider: 04/01/20 14:43 Discharge Date: 04/06/20 - Discharge Diagnosis (1) Endometritis following delivery Is this a current diagnosis for this admission?: Yes - Additional Information Resuscitation Status: Full Code Discharge Diet: As Tolerated Discharge Activity: Activity As Tolerated, No Lifting Over 10 Pounds, No Lifting/Push/Pulling, Pelvic Rest, Slowly Increase Activity, Walk Frequently Referrals: NOLAN LEA CNM [NO LOCAL MD] - Follow up as needed Prescriptions: Cephalexin [Cephalexin 500 MG Tablet] 500 mg PO Q6 10 Days #40 MDD FILLED 03/26 FOR 7 DAYS Home Medications: Vit/Dha [ Multi + Dha Capsule] 1 cap PO DAILY 03/13/20 Ibuprofen [Motrin 800 mg Tablet] 800 mg PO Q8HP PRN #30 tablet 03/20/20 Cephalexin [Cephalexin 500 MG Tablet] 500 mg PO Q6 10 Days #40 MDD FILLED 03/26 FOR 7 DAYS 04/06/20 History of Present Illiness History of Present Illness: BRIAN ALBERT is a 24 year old female Physical Exam - Physical Exam Vital Signs: Temp Pulse Resp BP Pulse Ox 97.4 F 54 L 17 119/87 H 99 04/06/20 09:54 04/06/20 08:05 04/06/20 08:05 04/06/20 08:05 04/06/20 08:05 Intake & Output 04/05/20 04/06/20 04/07/20 06:59 06:59 06:59 Intake Total 1250 690 Output Total 3200 Balance -1950 690 Weight 68.2 kg Results Laboratory Results: WBC 6.3 10^3/uL (4.0-10.5) 04/05/20 07:26 RBC 2.83 10^6/uL (3.72-5.28) L 04/05/20 07:26 Hgb 7.9 g/dL (12.0-15.5) L 04/05/20 07:26 Hct 23.3 % (36.0-47.0) L 04/05/20 07:26 MCV 82 fl (80-97) 04/05/20 07:26 MCH 28.0 pg (27.0-33.4) 04/05/20 07:26 MCHC 34.0 g/dL (32.0-36.0) 04/05/20 07: RDW 15.6 % (11.5-14.0) H 04/05/20 07:26 Plt Count 268 10^3/uL (150-450) 04/05/20 07:26 Lymph % (Auto) 18.9 % (13-45) 04/05/20 07: [place] % (Auto) 5.5 % (3-13) 04/05/20 07:26 Eos % (Auto) 2.0 % (0-6) 04/05/20 07: Baso % (Auto) 0.6 % (0-2) 04/05/20: Absolute Neuts (auto) 4.6 10^3/uL (1.7-8.2) 04/05/20 07: Absolute Lymphs (auto) 1.2 10^3/uL (0.5-4.7) 04/05/20 07: Absolute Monos (auto) 0.3 10^3/uL (0.1-1.4) 04/05/20 07: Absolute Eos (auto) 0.1 10^3/uL (0.0-0.6) 04/05/20: Absolute Basos (auto) 0.0 10^3/uL (0.0-0.2) 04/05/20 07:26 Seg Neutrophils % 73.0 % (42-78) 04/05/20 07: PT 15.5 SEC (11.4-15.4) H 04/01/20 11:37 INR 1.21 04/01/20 11:37 VBG pH 7.39 (7.30-7.42) 04/01/20 17:31 VBG pCO2 40.1 mmHg (35-63) 04/01/20 17: VBG HCO3 23.5 mmol/L (20-32) 04/01/20 17:31 VBG Base Excess -1.5 mmol/L 04/01/20 17:31 Sodium 137.6 mmol/L (137-145) 04/04/20 07:14 Potassium 3.9 mmol/L (3.6-5.0) 04/04/20 07:14 Chloride 103 mmol/L (98-107) 04/04/20 07:14 Carbon Dioxide 26 mmol/L (22-30) 04/04/20 07:14 Anion Gap 9 (5-19) 04/04/20 07:14 BUN 5 mg/dL (7-20) L 04/04/20 07:14 Creatinine 0.52 mg/dL (0.52-1.25) 04/04/20 07:14 Est GFR ( Amer) > 60 (>60) 04/04/20 07:14 Est GFR (MDRD) Non-Af > 60 (>60) 04/04/20 07:14 Glucose 79 mg/dL (75-110) 04/04/20 07:14 Lactic Acid 0.7 mmol/L (0.7-2.1) 04/01/20 17:31 Calcium 8.0 mg/dL (8.4-10.2) L 04/04/20 07:14 Total Bilirubin 0.5 mg/dL (0.2-1.3) 04/01/20 11:37 Direct Bilirubin 0.3 mg/dL (0.0-0.4) 04/01/20 11:37 Neonat Total Bilirubin Not Reportable 04/01/20 11:37 Neonat Direct Bilirubin Not Reportable 04/01/20 11:37 Neonat Indirect Bili Not Reportable 04/01/20 11:37 AST 34 U/L (14-36) 04/01/20 11:37 ALT 24 U/L (<35) 04/01/20 11:37 Alkaline Phosphatase 144 U/L (38-126) H 04/01/20 11:37 Total Protein 6.5 g/dL (6.3-8.2) 04/01/20 11:37 Albumin 3.5 g/dL (3.5-5.0) 04/01/20 11:37 Urine Color YELLOW 04/04/20 11:50 Urine Appearance SLIGHTLY-CLOUDY 04/04/20 11:50 Urine pH 6.0 (5.0-9.0) 04/04/20 11:50 Ur Specific [place] 1.010 04/04/20 11:50 Urine Protein NEGATIVE mg/dL (NEGATIVE) 04/04/20 11:50 Urine Glucose (UA) NEGATIVE mg/dL (NEGATIVE) 04/04/20 11:50 Urine Ketones NEGATIVE mg/dL (NEGATIVE) 04/04/20 11:50 Urine Blood MODERATE (NEGATIVE) H 04/04/20 11:50 Urine Nitrite NEGATIVE (NEGATIVE) 04/04/20 11:50 Urine Bilirubin NEGATIVE (NEGATIVE) 04/04/20 11:50 Urine Urobilinogen NEGATIVE mg/dL (<2.0) 04/04/20 11:50 Ur Leukocyte Esterase NEGATIVE (NEGATIVE) 04/04/20 11:50 Urine WBC (Auto) 5 /HPF 04/04/20 11:50 Urine RBC (Auto) 6 /HPF 04/04/20 11:50 Squamous Epi Cells Auto 4 /HPF 04/04/20 11:50 Urine Mucus (Auto) FEW /LPF 04/04/20 11:50 Urine Ascorbic Acid NEGATIVE (NEGATIVE) 04/04/20 11:50 Blood Type O POSITIVE 04/04/20 10:08 Antibody Screen NEGATIVE 04/04/20 10:08 Crossmatch See Detail 04/04/20 10:08 Impressions: Chest X-Ray 04/01/20 11:11 IMPRESSION: NO ACUTE RADIOGRAPHIC FINDING IN THE CHEST. Transvaginal US 04/01/20 11:50 IMPRESSION: The appearance of the endometrium is concerning for retained products of conception. Cannot exclude infection. Abdomen/Pelvis CT 04/03/20 00:00 IMPRESSION: 7.5 cm rim enhancing fluid the anterior periuterine soft tissue. There is also focal 2 cm thickening and hypodensity in the lower rectus sheath in the region of prior incision this measures approximate 4.5 cm greatest transverse dimension. Scattered inflammatory changes are present in the pre vesicular and upper periuterine -adnexal spaces. Abdomen/Pelvis CT 04/04/20 00:00 IMPRESSION: 1. Mild splenomegaly. 2. There is 37 x 69 mm fluid collection anterior to the uterus. Likely hematoma, cannot exclude abscess. 3. There is a 52 x 26 mm fluid collection within the rectus sheath. Likely hematoma. Cannot exclude abscess. 4. There is hyperemia in the uterine vessels. This may indicate on the infl ammatory changes. Could be secondary to pelvic congestion syndrome. Drainage Catheter Insertion 04/04/20 00:00 IMPRESSION: CT GUIDED ASPIRATION OF 2 FLUID COLLECTION WITHOUT IMMEDIATE COMPLICATION. PATHOLOGY PENDING. Stroke Is this a Stroke Patient?: No Acute Heart Failure Is this a Heart Failure Patient?: No
[2020-04-06 13:54] VITALS: BP 109/72
== END 2020-04-06 15:09 | disposition home or self-care (01) | DRG 776 ==
LOC: ER 10:52 → EH 14:43 → 2N 16:20
PROVIDERS: ADMIT Obstetrics & Gynecology; ATTEND Obstetrics & Gynecology
PROC: 0W9J3ZX Drainage of Pelvic Cavity, Percutaneous Approach, Diagnostic (ICD-10-PCS; principal; 2020-04-04)
PROC: 30233N1 Transfusion of Nonautologous Red Blood Cells into Peripheral Vein, Percutaneous Approach (ICD-10-PCS; 2020-04-04)
PROC: 3E02340 Introduction of Influenza Vaccine into Muscle, Percutaneous Approach (ICD-10-PCS; 2020-04-06)
DX: O85 Puerperal sepsis (principal); D62 Acute posthemorrhagic anemia; R18.8 Other ascites; O86.12 Endometritis following delivery; O90.2 Hematoma of obstetric wound; O90.81 Anemia of the puerperium; O34.211 Maternal care for low transverse scar from previous cesarean delivery; Z79.899 Other long term (current) drug therapy; Z23 Encounter for immunization
CPT/HCPCS: 36415; 36430; 49405; 71046; 74177; 76830; 80048; 80053; 81001; 82803; 83605; 85025; 85027; 85610; 86850; 86900; 86901; 86920; 87040; 87070; 87075; 87205; 90471; 90686; 93005; 93010; 96365; 96368; 99285; C1729; C1769; G0008; J0696; J1170; J2250; J2543; J3010; J3490; J7030; J7050; J7120; P9016